=== PATIENT | female | born 1975 | race Caucasian/White ===

== ENCOUNTER → 2017-01-17 | Outpatient (REF) | payer MEDICARE, OTHER, MEDICAID ==
[~2017-01-17] MED LIST: ALEV220T26 PO; BUPR300T34 PO; CETI10TA PO; CLON0.5T PO; MONT10TA2 PO; MULT1CHW39 PO; TOPI50TA9 PO; TRAZ1TAB14 PO; TRAZ50TA11 PO; TRAZO50TA PO; VITMTA PO; WELLTAB38 PO
[2017-01-22 00:09] LABS: Lyme Disease IgG/IgM Antibodie <0.91 ISR (0.00-0.90); Lyme Disease IgM Ab Quantitati <0.80 index (0.00-0.79); SJOGREN'S ANTI SS-A <0.2 AI (0.0-0.9); SJOGREN'S ANTI SS-B <0.2 AI (0.0-0.9)
== END ==
LOC: M LAB REF 13:26
PROVIDERS: ATTEND Nurse Practitioner Family
DX: Z51.81 Encounter for therapeutic drug level monitoring (principal); F34.1 Dysthymic disorder; F43.10 Post-traumatic stress disorder, unspecified; Z79.1 Long term (current) use of non-steroidal anti-inflammatories (NSAID)

== ENCOUNTER 2017-02-07 18:57 | Inpatient (IN) | payer MEDICARE, OTHER, MEDICAID ==
[~2017-02-07] VITALS: Ht 175.3 cm; Wt 96.9 kg
[2017-02-07] MEDS ORDERED: CETI10TA PO (19:24)
[2017-02-07] MEDS ORDERED: MONT10TA2 PO (19:24)
[2017-02-07] MEDS ORDERED: TRAZ50TA11 PO (19:24)
[2017-02-07] MEDS ORDERED: TOPI50TA9 PO (19:24)
[2017-02-07] MEDS ORDERED: CLON0.5T PO (19:24)
[2017-02-07] MEDS ORDERED: BUPR300T34 PO (19:24)
[2017-02-07] MEDS ORDERED: MULT1CHW39 PO (19:24)
[2017-02-07 19:49] LABS: MEAN CORPUSCULAR HEMOGLOBIN 30.2 pg (27.0-33.0); MEAN CORPUSCULAR HGB CONC 33.7 g/dl (32.0-36.5); MEAN CORPUSCULAR VOLUME 89.6 fl (80.0-96.0); WHITE BLOOD COUNT 7.3 K/mm3 (4.0-10.0)
[2017-02-07] MEDS ORDERED: TETANUS/DIPHTHERIA TOX ADSORB ADULT 0.5ML SYR/VIAL (90714) IM ONE (20:00)
[2017-02-07] MEDS ORDERED: DERMABOND TOPICAL SKIN ADHESIVE TOP ONE (20:00)
[2017-02-07 20:07] LABS: METHADONE URINE NEGATIVE (NEGATIVE)
[2017-02-07 20:14] LABS: ALBUMIN 4.3 GM/DL (3.2-5.2); ALBUMIN/GLOBULIN RATIO 1.34 (1.00-1.93); ALKALINE PHOSPHATASE 62 U/L (45-117); ALT/SGPT 24 U/L (12-78); ANION GAP 10 MEQ/L (8-16); AST/SGOT 13 U/L (15-37); BILIRUBIN,DIRECT < 0.1 MG/DL (0.0-0.2); BILIRUBIN,TOTAL 0.3 MG/DL (0.2-1.0); BLOOD UREA NITROGEN 15 MG/DL (7-18); CALCIUM LEVEL 9.1 MG/DL (8.5-10.1); CARBON DIOXIDE LEVEL 20 MEQ/L (21-32); CHLORIDE LEVEL 112 MEQ/L (98-107); CREATININE FOR GFR 0.91 MG/DL (0.55-1.02); GLOMERULAR FILTRATION RATE > 60.0 (>58); GLUCOSE, FASTING 78 MG/DL (70-105); POTASSIUM SERUM 3.8 MEQ/L (3.5-5.1); SODIUM LEVEL 142 MEQ/L (136-145); TOTAL PROTEIN 7.5 GM/DL (6.4-8.2)
[2017-02-07] MEDS ORDERED: VITMTA PO (20:51)
[2017-02-07] MEDS ORDERED: TRAZ1TAB14 PO (20:51)
[2017-02-07] MEDS ORDERED: WELLTAB38 PO (20:51)
[2017-02-07] MEDS ORDERED: ALEV220T26 PO (20:59)
[2017-02-07 23:17] VITALS: BP 109/73
[2017-02-08] MEDS ORDERED: MOM 30ML SUSPENSION UDC PO PRN (00:15)
[2017-02-08] MEDS ORDERED: clonazePAM 0.5 MG TAB PO SCH (00:15)
[2017-02-08] MEDS ORDERED: MAALOX 30 ML SUSP *UDC PO PRN (00:15)
[2017-02-08] MEDS: clonazePAM 0.5 MG TAB PO PRN ×2 (00:59→21:25)
[2017-02-08] MEDS: traZODone 50 MG TAB PO PRN ×2 (00:59→21:25)
[2017-02-08] MEDS ORDERED: TOPIRAMATE (TopAMAX) 25 MG TAB PO ONE (01:00)
[2017-02-08] MEDS ORDERED: NAPROXEN 250 MG TAB PO ONE (01:00)
[2017-02-08 06:52] VITALS: BP 93/50
[2017-02-08] MEDS ORDERED: TOPIRAMATE (TopAMAX) 25 MG TAB PO SCH (09:00)
[2017-02-08] MEDS ORDERED: buPROPion 75 MG TAB PO SCH (09:00)
[2017-02-08] MEDS ORDERED: buPROPion **XL** TABLET 150MG (WELLBUTRIN XL) PO SCH (09:00)
[2017-02-08] MEDS ORDERED: buPROPion 100 MG TAB PO SCH (09:00)
[2017-02-08] MEDS: buPROPion **XL** TABLET 150MG (WELLBUTRIN XL) PO SCH (09:18)
[2017-02-08] MEDS: MONTELUKAST 10 MG TAB PO SCH (09:18)
[2017-02-08] MEDS: MULTIVITAMINS/MINERALS THERAP 1 TAB PO SCH (09:18)
[2017-02-08] MEDS: TOPIRAMATE (TopAMAX) 25 MG TAB PO SCH ×2 (09:18→21:24)
[2017-02-08] MEDS: CETIRIZINE (ZyrTEC) 10 MG TAB PO SCH (09:18)
[2017-02-08 18:00] VITALS: BP 102/60
[2017-02-08] MEDS ORDERED: NAPROXEN 250 MG TAB PO SCH ×2 (21:00)
[2017-02-09 06:38] VITALS: BP 100/56
[2017-02-09] MEDS: buPROPion **XL** TABLET 150MG (WELLBUTRIN XL) PO SCH (08:15)
[2017-02-09] MEDS: TOPIRAMATE (TopAMAX) 25 MG TAB PO SCH ×2 (08:15→20:38)
[2017-02-09] MEDS: CETIRIZINE (ZyrTEC) 10 MG TAB PO SCH (08:15)
[2017-02-09] MEDS: MONTELUKAST 10 MG TAB PO SCH (08:15)
[2017-02-09] MEDS: MULTIVITAMINS/MINERALS THERAP 1 TAB PO SCH (08:15)
[2017-02-09] MEDS: NAPROXEN 250 MG TAB PO SCH ×2 (13:40→20:38)
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
[2017-02-09 18:31] VITALS: BP 123/71
[2017-02-09] MEDS: traZODone 50 MG TAB PO PRN (20:39)
--- NOTE | 2017-02-10 06:38 | IPN ---
DATE: 02/09/2017 The patient today states "I am doing better today". She says she slept good. Her mood is 3 out of 10 with the closer to 10 as the most depressed. She is not suicidal. MENTAL STATUS EXAMINATION: She is alert and oriented times three, eye contact is fair to good. Psychomotor activity is normal. There is no formal thought disorder noted. Mood is "better". Affect full range and appropriate. She is not psychotic, suicidal or homicidal. Concentration is fair. Memory intact. Insight and judgment fair. DIAGNOSIS: Major depressive disorder, recurrent, severe, without psychotic symptoms. Posttraumatic stress disorder. TREATMENT PLAN: At this point, we will continue to monitor the patient for continued stabilization of her mood and resolution of any suicidal ideation.
[2017-02-10 07:08] VITALS: BP 104/57
--- NOTE | 2017-02-10 09:02 | HPE ---
DATE OF ADMISSION: 02/07/2017 Please refer to psychiatric history and evaluation for further details on this admission. This examination and history is intended for medical issues which may need treatment, followup or consult on this 41-year-old female. PRIMARY CARE PROVIDER: Dr. Neumann. ALLERGIES: LAMOTRIGINE, PENICILLIN, SULFA, LATEX. 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 It has long since healed without complication. Fibromyalgia. Posttraumatic stress disorder. Environmental allergies. She is currently being worked up for an autoimmune disorder. PAST SURGICAL HISTORY: She had elective convulsive therapy. Repair of deviated septum and adenoidectomy at age 1. Uterine ablation. Tubal ligation. FAMILY HISTORY: Mother and father both have hypertension. SOCIAL HISTORY: She is . She recently moved back from [place]. She is living with her mother. She has three grown children ages 18, 20 and 25. ETOH: She rarely drinks. She does not smoke cigarettes. She does not use recreational drugs. CURRENT MEDICATIONS: - bupropion 300 mg by mouth daily - bupropion XL 150 mg by mouth daily - Cetirizine 10 mg by mouth daily at bedtime - clonazepam 0.5 mg by mouth daily as needed anxiety - Singulair 10 mg by mouth daily - Multivite one by mouth daily - Topamax 50 mg by mouth twice daily - trazodone 75 mg by mouth daily at bedtime - Aleve 220 mg by mouth daily at bedtime Ten systems review was done. No complaints of headache. No blurry or double vision. No fever. No chills. No tinnitus. No hoarseness. No difficulty swallowing. No lightheadedness. No Vertigo. Breasts: No masses. CARDIOVASCULAR: No complaints of chest pressure, palpitations or edema. RESPIRATORY: No chronic cough, no sputum production. No hemoptysis. No orthopnea. No wheeze. GI: No nausea or vomiting currently or diarrhea. No current complaints of abdominal pain. No hematochezia, no melena. No change in appetite or bowel habits. : No hematuria, dysuria or frequency. MUSCULOSKELETAL: No joint redness or swelling. ENDOCRINE: No polyuria, polydipsia or polyphagia. HEMATOLOGICAL: No history of anemia. NEUROLOGICAL: She has a history of fibromyalgia. No history of seizures. No paresthesias or paralysis. PSYCHOLOGICAL: See psychiatric assessment. OBJECTIVE: 41-year-old cooperative female in no acute distress. Height 69 inches, weight 95.8 kg. BMI 31.2. Blood pressure 100/56, pulse 51, respirations 18, temperature 97.9. The patient is alert and oriented times three. Pupils equal and reactive to light. Extraocular movements intact. Cornea and sclera clear. Conjunctiva normal. No facial asymmetry. Pharynx, tongue and gums pink and moist. Tongue is midline. Neck is supple, without lymphadenopathy. No thyromegaly. No goiter. Carotids 2+ without bruit. Chest clear to auscultation, without wheeze or retraction. Heart is regular. Abdomen benign. Bowel sounds positive. Genitourinary ()/Rectal: Not done. Extremities show equal strength, full range of motion. No cyanosis, clubbing or edema. Peripheral pulses equal and palpable bilaterally. Skin is warm and dry. Laceration noted inside left forearm approximately 2 inches long, partially glued. A small amount of glue has come off the proximal laceration, approximately 3 cm. No redness or drainage. IMPRESSION/PLAN: Psychiatric plan per psychiatry. Steri-Strip to laceration. Apply dry Telfa. Monitor for infection. Environmental allergies. Clinically stable. Continue Zyrtec 10 mg by mouth daily, Singulair 10 mg by mouth daily. Fibromyalgia, continue followup with primary care provider. No other acute medical issues.
[2017-02-10] MEDS: MULTIVITAMINS/MINERALS THERAP 1 TAB PO SCH (09:05)
[2017-02-10] MEDS: buPROPion **XL** TABLET 150MG (WELLBUTRIN XL) PO SCH (09:05)
[2017-02-10] MEDS: TOPIRAMATE (TopAMAX) 25 MG TAB PO SCH ×2 (09:05→20:28)
[2017-02-10] MEDS: MONTELUKAST 10 MG TAB PO SCH (09:06)
[2017-02-10] MEDS: CETIRIZINE (ZyrTEC) 10 MG TAB PO SCH (09:06)
[2017-02-10] MEDS: NAPROXEN 250 MG TAB PO SCH ×2 (09:06→20:28)
[2017-02-10 18:00] VITALS: BP 125/72
[2017-02-10] MEDS: traZODone 50 MG TAB PO PRN (20:28)
[2017-02-10] MEDS: clonazePAM 0.5 MG TAB PO PRN (22:31)
[2017-02-11 06:54] VITALS: BP 108/64
--- NOTE | 2017-02-11 08:18 | MHIPN ---
DATE: 02/10/2017 SUBJECTIVE: Patient reports she is doing better, she states she is depressed because her son, the youngest, has a severe drug problem, has been arrested and there seems to be no end to this problem that is effecting all her family. She requests to be discharged, says that the problem is there is it will not resolve by her taking medications. MENTAL STATUS EXAMINATION: Patient is alert and oriented times three. She has good eye contact, dressed in personal clothes. She has no psychomotor agitation or retardation, she is not delusional, she is not responding to internal stimuli, she denies auditory or visual hallucinations, denies suicidal or homicidal ideation. Her mood is sad/depressed and her affect of congruent to mood. Her memory is intact, her insight and judgment are fair. DIAGNOSES: 1. Major depressive disorder, recurrent, severe without psychotic symptoms. 2. Posttraumatic stress disorder. TREATMENT PLAN: Will continue patient on the same medications, she was ordered the possibility of Abilify on a small dose just as a booster to her recently adjusted bupropion 450 mg daily but she refused, saying that she already had tried Abilify in the past and it did not work. At this time, will monitor her and will encourage her to attend groups, provide support.
[2017-02-11] MEDS: MULTIVITAMINS/MINERALS THERAP 1 TAB PO SCH (08:34)
[2017-02-11] MEDS: TOPIRAMATE (TopAMAX) 25 MG TAB PO SCH ×2 (08:34→20:27)
[2017-02-11] MEDS: buPROPion **XL** TABLET 150MG (WELLBUTRIN XL) PO SCH (08:35)
[2017-02-11] MEDS: NAPROXEN 250 MG TAB PO SCH ×2 (08:35→20:28)
[2017-02-11] MEDS: MONTELUKAST 10 MG TAB PO SCH (08:35)
[2017-02-11] MEDS: CETIRIZINE (ZyrTEC) 10 MG TAB PO SCH (08:35)
[2017-02-11] MEDS ORDERED: ACETAMINOPHEN TAB 650MG DOSE (2X325MG) PO PRN (10:45)
[2017-02-11] MEDS ORDERED: clonazePAM 0.5 MG TAB PO PRN (12:00)
[2017-02-11 18:00] VITALS: BP 121/71
[2017-02-11] MEDS ORDERED: traZODone 50 MG TAB PO PRN (21:00)
[2017-02-12 06:51] VITALS: BP 119/61
[2017-02-12] MEDS: buPROPion **XL** TABLET 150MG (WELLBUTRIN XL) PO SCH (08:11)
[2017-02-12] MEDS: CETIRIZINE (ZyrTEC) 10 MG TAB PO SCH (08:11)
[2017-02-12] MEDS: NAPROXEN 250 MG TAB PO SCH (08:11)
[2017-02-12] MEDS: MULTIVITAMINS/MINERALS THERAP 1 TAB PO SCH (08:11)
[2017-02-12] MEDS: MONTELUKAST 10 MG TAB PO SCH (08:11)
[2017-02-12] MEDS: TOPIRAMATE (TopAMAX) 25 MG TAB PO SCH (08:12)
[2017-02-12] MEDS ORDERED: TRAZO50TA PO (09:42)
--- NOTE | 2017-02-12 17:09 | MHDSPDOC ---
[facility] Discharge Summary Discharge Summary DATE OF ADMISSION: Feb 07, 2017 at 21:00 DATE OF DISCHARGE: Feb 12, 2017 at 11:45 DISCHARGE DIAGNOSES: 1. Major depressive disorder, recurrent, moderate without psychotic symptoms. 2. PTSD. REASON FOR ADMISSION: This is one of multiple psychiatric hospitalizations for this 41-year-old white woman admitted due to severe and what appears to be chronic depression and after she impulsively cut herself on her left wrist. She describes having increased stress. She moved here recently from [place] and has been living with her mother. This is because her current decided to abuse drugs and she decided to leave him. The patient says that she is worried about her mother's health and her 17-year-old son has been abusing drugs also. She says that she has had chronic depression and feeling hopeless and helpless, isolative. She has not been sleeping well, although recently since she was prescribed trazodone she is sleeping better. She feels hopeless, helpless and has feelings of worthlessness. She experiences anhedonia. She stated that on the day of admission she had made something for her granddaughter, which was made of glass and this broke and she impulsively just took it and cut her wrist. She says that she has never done anything like that before. Of note, the patient was prescribed, at [facility], Wellbutrin XL 450 mg daily and that was recently increased. She was also started on Topamax 50 mg twice a day in the clinic and that was also recent. She takes Klonopin 0.5 mg once daily, but she says that she really needs it and she is sleeping better since she has been on trazodone 150 mg at night as needed for insomnia. CONSULTANTS INVOLVED: None TREATMENT AND PROGRESS ON THE UNIT : Patient was seen by this va underwriter on Friday and she expressed that she never intended to kill herself, it was an impulsive act to cut herself, out of frustration and anger. She says she feels desperate because her son is using drugs and has been arrested. She cried easily , was very tearful. Said she has been depressed for many years and has many attempted suicide before. She also expressed that she did this because she doesn 't know what else to do with her son, she feels very anxious about that situation. She says she knows she can take all the medications in the world but if that continues, her son's problem, she will continue to feel depressed. She was able to talk about her previous history of trauma with her ex , said she didn't want any change in her medications because they just had been changed at the Outpatient Clinic. Adamantly denied SI, denied HI and denied thought delusions and hallucinations. She said she wanted to be discharged because she had planned going on vacations with her mother, said she felt better , her family was very supportive of her. HOSPITAL COURSE: As above. DISCHARGE ASSESSMENT: Patient was alert, oriented x 3 , was not in danger to self or others. MENTAL STATUS EXAMINATION ON DISCHARGE: Patient is a -year old female, who is alert, oriented 3, cooperative with interview, dressed in personal clothes. Speech is fluid and spontaneous. Language skills are fair. Thought processes including: Intact. Thought content: Coherent. Abstract reasoning, and computation: Good. Description of associations: Good. Description of abnormal or psychotic thoughts: There is no psychotic thoughts, she is not responding to internal stimuli, she is not suicidal or homicidal. Judgment: Improved. Insight: Improved. Orientation to oriented 3. Recent and remote memory: Intact. Attention span and concentration: Fair. Language: Normal. Fund of knowledge: Fair. Mood: Euthymic. Affect: Congruent to mood, full range, appropriate. MEDICATIONS ON DISCHARGE: -Wellbutrin 450 mg by mouth daily for depression. - Ativan 0.5 mg E on daily when necessary for anxiety - Topamax 50 mg by mouth twice a day for mood stabilization -Trazodone 150 mg by mouth daily at bedtime for insomnia. PLAN/FOLLOWUP ARRANGEMENTS: Patient will follow up at the outpatient clinic, [facility] The amount of time spent in the coordination of care for this patient was approximately 60 minutes. Vital Signs/I&Os Vital Signs Date Time Temp Pulse Resp B/P (MAP) Pulse Ox O2 Delivery O2 Flow Rate FiO2 02/12/17 06:51 98.9 67 18 119/61 (80) 02/10/17 07:08 Room Air 02/07/17 22:50 100 Medications Scheduled Bupropion HCl (Bupropion HCl Xl) 300 Mg Tab, 300 MG PO DAILY, (Reported) 450mg total Bupropion HCl (Wellbutrin Xl) 150 Mg Tab, 150 MG PO DAILY, (Reported) 450mg total Cetirizine HCl (Cetirizine HCl) 10 Mg Tab, 10 MG PO DAILY, (Reported) Montelukast Sodium (Montelukast Sodium) 10 Mg Tab, 10 MG PO DAILY, (Reported) Multivitamins *[facility] STOCKED* (Thera M Plus *[facility] STOCKED*) 1 Tab Tab, 1 TAB PO DAILY, (Reported) Naproxen Sodium (Aleve) 220 Mg Tab, 220 MG PO QPM, (Reported) Topiramate (Topiramate) 50 Mg Tab, 50 MG PO BID, (Reported) Scheduled PRN Clonazepam (Clonazepam) 0.5 Mg Tab, 0.5 MG PO DAILY PRN for ANXIETY/AGITATION, ( Reported) Trazodone HCl (Trazodone HCl) 50 Mg Tab, 150 MG PO QHSP PRN for INSOMNIA, #21 Allergies Coded Allergies: Lamotrigine (Verified Allergy, Unknown, 02/07/17) Latex (Verified Allergy, Unknown, 02/07/17) Penicillins (Verified Allergy, Unknown, 02/07/17) Sulfa Antibiotics (Verified Allergy, Unknown, 02/07/17) NIGEL LOVE MD Feb 12, 2017 17:09
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
== END 2017-02-12 11:45 | disposition home or self-care (01) | DRG 885 ==
LOC: M ED 18:57 → M ED INP 21:00 → M PSY 23:11
PROVIDERS: ADMIT Psychiatry & Neurology Psychiatry; ATTEND Psychiatry & Neurology Psychiatry
DX: F33.1 Major depressive disorder, recurrent, moderate (principal); F43.10 Post-traumatic stress disorder, unspecified; Z79.899 Other long term (current) drug therapy; Z88.0 Allergy status to penicillin; Z88.2 Allergy status to sulfonamides; Z91.040 Latex allergy status; M79.7 Fibromyalgia

== ENCOUNTER → 2017-02-20 | Outpatient (REF) | payer MEDICARE, OTHER, MEDICAID | LOC: M LAB REF 16:50 | PROVIDERS: ATTEND Physician Assistant Medical | DX: N39.0 Urinary tract infection, site not specified (principal) ==

== ENCOUNTER → 2017-03-08 | Outpatient (REF) | payer MEDICARE, OTHER, MEDICAID | LOC: M LAB REF 22:10 | PROVIDERS: ATTEND Physician Assistant Medical | DX: N39.0 Urinary tract infection, site not specified (principal) ==

== ENCOUNTER → 2017-03-11 | Outpatient (REF) | payer MEDICARE, OTHER, MEDICAID ==
[2017-03-11 19:35] LABS: COMPLEMENT C4 31.3 MG/DL (10-40)
== END ==
LOC: M LAB REF 14:12
PROVIDERS: ATTEND Internal Medicine
DX: R76.9 Abnormal immunological finding in serum, unspecified (principal); M25.50 Pain in unspecified joint

== ENCOUNTER → 2017-03-20 | Outpatient (REF) | payer MEDICARE, OTHER, MEDICAID | LOC: M LAB REF 17:17 | PROVIDERS: ATTEND Internal Medicine | DX: R31.9 Hematuria, unspecified (principal) ==

== ENCOUNTER → 2017-07-22 | Outpatient (CLI) | payer MEDICARE, OTHER, MEDICAID ==
[2017-07-25 14:13] LABS: STREP PNEUMO TYPE 1 0.2 ug/mL (>1.3); STREP PNEUMO TYPE 12F 4.3 ug/mL (>1.3); STREP PNEUMO TYPE 14 31.9 ug/mL (>1.3); STREP PNEUMO TYPE 18C 1.4 ug/mL (>1.3); STREP PNEUMO TYPE 19A >30.4 ug/mL (>1.3); STREP PNEUMO TYPE 19F 1.8 ug/mL (>1.3); STREP PNEUMO TYPE 23F 3.2 ug/mL (>1.3); STREP PNEUMO TYPE 3 1.4 ug/mL (>1.3); STREP PNEUMO TYPE 4 0.4 ug/mL (>1.3); STREP PNEUMO TYPE 6B 6.2 ug/mL (>1.3); STREP PNEUMO TYPE 7F >30.2 ug/mL (>1.3); STREP PNEUMO TYPE 8 0.3 ug/mL (>1.3); STREP PNEUMO TYPE 9N 3.4 ug/mL (>1.3); STREP PNEUMO TYPE 9V 3.1 ug/mL (>1.3)
== END ==
LOC: M SMT 10:21
DX: J32.9 Chronic sinusitis, unspecified (principal)
CPT/HCPCS: 86609

== ENCOUNTER → 2017-07-28 | Outpatient (CLI) | payer MEDICARE, OTHER, MEDICAID | LOC: M RAD 15:38 | DX: J32.9 Chronic sinusitis, unspecified (principal) | CPT/HCPCS: 70486 ==

== ENCOUNTER → 2017-12-05 | Outpatient (REF) | payer MEDICARE, OTHER, MEDICAID ==
[2017-12-05 18:29] LABS: APPEARANCE, URINE CLEAR (CLEAR); BACTERIA, URINE AUTO 1+ (NEGATIVE); BILIRUBIN, URINE AUTO NEGATIVE (NEGATIVE); BLOOD, URINE BLOOD NEGATIVE (NEGATIVE); COLOR, URINE COLORLESS (YELLOW); GLUCOSE, URINE (UA) AUTO NEGATIVE (NEGATIVE); KETONE, URINE AUTO NEGATIVE (NEGATIVE); LEUKOCYTE ESTERASE, URINE AUTO TRACE (NEGATIVE); NITRITE, URINE AUTO NEGATIVE (NEGATIVE); PROTEIN, URINE AUTO NEGATIVE (NEGATIVE); RBC, URINE AUTO 1 /HPF (0-3); SPECIFIC GRAVITY URINE AUTO 1.002 (1.002-1.035); SQUAMOUS EPITHELIAL CELL UR AU 1 /HPF (0-6); UROBILINOGEN, URINE AUTO 0.2 mg/dL (0.0-2.0); WBC, URINE AUTO 4 /HPF (0-3)
== END ==
LOC: M LAB REF 16:39
DX: N39.0 Urinary tract infection, site not specified (principal); F33.1 Major depressive disorder, recurrent, moderate; F34.1 Dysthymic disorder; F43.10 Post-traumatic stress disorder, unspecified
CPT/HCPCS: 81001

== ENCOUNTER → 2018-03-23 | Outpatient (CLI) | payer MEDICARE, OTHER, MEDICAID | LOC: M RAD 13:28 | DX: J32.4 Chronic pansinusitis (principal); G43.019 Migraine without aura, intractable, without status migrainosus | CPT/HCPCS: 70486 ==

== ENCOUNTER → 2018-04-14 | Outpatient (REF) | payer MEDICARE, OTHER ==
[2018-04-14 14:03] LABS: APPEARANCE, URINE CLOUDY (CLEAR); BACTERIA, URINE AUTO 1+ (NEGATIVE); BILIRUBIN, URINE AUTO NEGATIVE (NEGATIVE); BLOOD, URINE BLOOD 3+ (NEGATIVE); COLOR, URINE YELLOW (YELLOW); GLUCOSE, URINE (UA) AUTO NEGATIVE (NEGATIVE); KETONE, URINE AUTO NEGATIVE (NEGATIVE); LEUKOCYTE ESTERASE, URINE AUTO 3+ (NEGATIVE); NITRITE, URINE AUTO NEGATIVE (NEGATIVE); PROTEIN, URINE AUTO 1+ mg/dL (NEGATIVE); RBC, URINE AUTO TNTC /HPF (0-3); SPECIFIC GRAVITY URINE AUTO 1.012 (1.002-1.035); SQUAMOUS EPITHELIAL CELL UR AU 0 /HPF (0-6); UROBILINOGEN, URINE AUTO 0.2 mg/dL (0.0-2.0); WBC, URINE AUTO TNTC /HPF (0-3)
== END ==
LOC: M LAB REF 13:29
DX: N39.0 Urinary tract infection, site not specified (principal)
CPT/HCPCS: 81001

== ENCOUNTER → 2018-05-15 | Outpatient (REF) | payer MEDICARE, OTHER, MEDICAID ==
[2018-05-15 14:03] LABS: APPEARANCE, URINE HAZY (CLEAR); BACTERIA, URINE AUTO 1+ (NEGATIVE); BILIRUBIN, URINE AUTO NEGATIVE (NEGATIVE); BLOOD, URINE BLOOD 1+ (NEGATIVE); COLOR, URINE YELLOW (YELLOW); GLUCOSE, URINE (UA) AUTO NEGATIVE (NEGATIVE); KETONE, URINE AUTO NEGATIVE (NEGATIVE); LEUKOCYTE ESTERASE, URINE AUTO 2+ (NEGATIVE); NITRITE, URINE AUTO NEGATIVE (NEGATIVE); PROTEIN, URINE AUTO NEGATIVE (NEGATIVE); RBC, URINE AUTO 10 /HPF (0-3); SPECIFIC GRAVITY URINE AUTO 1.012 (1.002-1.035); SQUAMOUS EPITHELIAL CELL UR AU 1 /HPF (0-6); UROBILINOGEN, URINE AUTO 0.2 mg/dL (0.0-2.0); WBC, URINE AUTO 83 /HPF (0-3)
== END ==
LOC: M LAB REF 13:24
DX: N39.0 Urinary tract infection, site not specified (principal)
CPT/HCPCS: 81001

== ENCOUNTER → 2018-06-18 | Outpatient (REF) | payer MEDICARE, OTHER, MEDICAID ==
[~2018-06-18] MED LIST changes: -CLON0.5T PO; +CLON0.5T8 PO; +TRAZ-160 PO; -TRAZ50TA11 PO
[2018-06-18 17:51] LABS: APPEARANCE, URINE CLEAR (CLEAR); BACTERIA, URINE AUTO NEGATIVE (NEGATIVE); BILIRUBIN, URINE AUTO NEGATIVE (NEGATIVE); BLOOD, URINE BLOOD NEGATIVE (NEGATIVE); COLOR, URINE YELLOW (YELLOW); GLUCOSE, URINE (UA) AUTO NEGATIVE (NEGATIVE); KETONE, URINE AUTO NEGATIVE (NEGATIVE); LEUKOCYTE ESTERASE, URINE AUTO NEGATIVE (NEGATIVE); NITRITE, URINE AUTO NEGATIVE (NEGATIVE); PROTEIN, URINE AUTO NEGATIVE (NEGATIVE); RBC, URINE AUTO 1 /HPF (0-3); SPECIFIC GRAVITY URINE AUTO 1.012 (1.002-1.035); SQUAMOUS EPITHELIAL CELL UR AU 0 /HPF (0-6); UROBILINOGEN, URINE AUTO 0.2 mg/dL (0.0-2.0); WBC, URINE AUTO 1 /HPF (0-3)
== END ==
LOC: M SMT 17:11
PROVIDERS: ATTEND Nurse Practitioner Family
DX: R31.29 Other microscopic hematuria (principal)
CPT/HCPCS: 51798; 81001; 87088; 87186; 88108; G0463

== ENCOUNTER → 2018-06-25 | Outpatient (CLI) | payer MEDICARE, OTHER, MEDICAID ==
[~2018-06-25] MED LIST changes: +ISOVUE-370 76% 100ML VIAL (Q9967) As Ordered ONE
--- NOTE | 2018-06-25 17:56 | REP ---
CT UROGRAM ABDOMEN AND PELVIS: CT abdomen and pelvis performed prior to and following the intravenous administration of 100 mL of Isovue-370 with sagittal, coronal and 3D reconstruction images performed. Visualized lungs bases are clear. Precontrast images show focal cortical scarring in the upper pole of the right kidney laterally with underlying coarse cortical calcifications measuring 4 mm and 6 mm in diameter. Otherwise no renal calculi are seen and there is no hydroureteronephrosis. No ureteral or bladder calculus is seen. No definite gallstones are seen in the gallbladder. Postcontrast images show the liver, spleen, adrenals, pancreas and kidneys to be essentially unremarkable. There is no abdominal aortic aneurysm. There is no adenopathy. There is no free air or free fluid. No bowel wall thickening is seen. I see no pelvic mass. Sigmoid diverticulosis is incidentally noted. The urinary bladder demonstrates no definite abnormality. IMPRESSION: Focal scarring and cortical calcification in the upper pole of the right kidney. Otherwise, no evidence of renal, ureteral or bladder calculus and no evidence of renal, ureteral or bladder mass. Sigmoid diverticulosis. Electronically Signed by Celso Gabriel MD 07/02/2018 11:00 P
== END ==
LOC: M RAD 15:51
PROVIDERS: ATTEND Nurse Practitioner Family
DX: R31.29 Other microscopic hematuria (principal); K57.30 Diverticulosis of large intestine without perforation or abscess without bleeding
CPT/HCPCS: 74178; Q9967

== ENCOUNTER → 2018-09-09 | Outpatient (REF) | payer MEDICARE, OTHER, MEDICAID ==
[~2018-09-09] MED LIST changes: -ISOVUE-370 76% 100ML VIAL (Q9967) As Ordered ONE
[2018-09-09 13:21] LABS: APPEARANCE, URINE CLEAR (CLEAR); BACTERIA, URINE AUTO NEGATIVE (NEGATIVE); BILIRUBIN, URINE AUTO NEGATIVE (NEGATIVE); BLOOD, URINE BLOOD NEGATIVE (NEGATIVE); COLOR, URINE YELLOW (YELLOW); GLUCOSE, URINE (UA) AUTO NEGATIVE (NEGATIVE); KETONE, URINE AUTO NEGATIVE (NEGATIVE); LEUKOCYTE ESTERASE, URINE AUTO NEGATIVE (NEGATIVE); NITRITE, URINE AUTO NEGATIVE (NEGATIVE); PROTEIN, URINE AUTO NEGATIVE (NEGATIVE); RBC, URINE AUTO 1 /HPF (0-3); SPECIFIC GRAVITY URINE AUTO 1.011 (1.002-1.035); SQUAMOUS EPITHELIAL CELL UR AU 0 /HPF (0-6); UROBILINOGEN, URINE AUTO 0.2 mg/dL (0.0-2.0); WBC, URINE AUTO 0 /HPF (0-3)
== END ==
LOC: M SMT 13:00
PROVIDERS: ATTEND Urology
DX: N39.0 Urinary tract infection, site not specified (principal)

== ENCOUNTER → 2018-10-08 | Outpatient (REF) | payer MEDICARE, OTHER, MEDICAID ==
[~2018-10-08] MED LIST changes: -MULT1CHW39 PO; +MULT200T7 PO
[2018-10-08 19:49] LABS: APPEARANCE, URINE CLEAR (CLEAR); BACTERIA, URINE AUTO NEGATIVE (NEGATIVE); BILIRUBIN, URINE AUTO NEGATIVE (NEGATIVE); BLOOD, URINE BLOOD 2+ (NEGATIVE); COLOR, URINE YELLOW (YELLOW); GLUCOSE, URINE (UA) AUTO NEGATIVE (NEGATIVE); KETONE, URINE AUTO NEGATIVE (NEGATIVE); LEUKOCYTE ESTERASE, URINE AUTO NEGATIVE (NEGATIVE); NITRITE, URINE AUTO NEGATIVE (NEGATIVE); PROTEIN, URINE AUTO NEGATIVE (NEGATIVE); RBC, URINE AUTO 2 /HPF (0-3); SPECIFIC GRAVITY URINE AUTO 1.005 (1.002-1.035); SQUAMOUS EPITHELIAL CELL UR AU 0 /HPF (0-6); UROBILINOGEN, URINE AUTO 0.2 mg/dL (0.0-2.0); WBC, URINE AUTO 0 /HPF (0-3)
== END ==
LOC: M SMT 17:14
PROVIDERS: ATTEND Nurse Practitioner Family
DX: N39.0 Urinary tract infection, site not specified (principal)
CPT/HCPCS: 81001; 87086; G0463

== ENCOUNTER → 2018-10-14 | Outpatient (CLI) | payer MEDICARE, OTHER, MEDICAID ==
--- NOTE | 2018-10-14 15:06 | REP ---
REASON FOR EXAM: Flank pain. COMPARISON: Ultrasound 03/14/[address] of the abdomen/pelvis 06/25/2018 showing a cortical calcification in the upper pole of the right kidney. The exam was otherwise unremarkable. The right kidney measures 10.9 x 4.7 x 4.2 cm, and the left kidney measures 10.7 x 4.9 x 5.1 cm. The renal cortical echoes are normal bilaterally with preservation of cortical medullary differentiation. There are no cystic or solid masses. Seen in the upper pole of the right kidney, there is an echogenic focus and, again, likely representing either focal cortical scarring or nonobstructing cortical calcification. This area does not cause significant acoustic shadowing. IMPRESSION: No significant change from prior exams with finding as described above. Electronically Signed by Calrito Miranda DO 10/14/2018 05:02 P
== END ==
LOC: M RAD 12:20
PROVIDERS: ATTEND Nurse Practitioner Family
DX: M54.9 Dorsalgia, unspecified (principal); F33.1 Major depressive disorder, recurrent, moderate; F43.10 Post-traumatic stress disorder, unspecified; F34.1 Dysthymic disorder; F90.0 Attention-deficit hyperactivity disorder, predominantly inattentive type; F41.1 Generalized anxiety disorder; G47.00 Insomnia, unspecified

== ENCOUNTER → 2018-11-06 | Outpatient (CLI) | payer MEDICARE, OTHER, MEDICAID ==
--- NOTE | 2018-11-06 15:46 | REP ---
BILATERAL MAMMOGRAM WITH 3D TOMOSYNTHESIS, DIAGNOSTIC MAMMOGRAM RIGHT BREAST AND RIGHT BREAST ULTRASOUND: HISTORY: Palpable lump with pain and swelling right breast upper outer quadrant. Family history breast cancer in maternal grandmother over age 50. [facility] of [facility] cancer 13.3%. The palpable area is marked on the skin on the right breast. MLO and CC views performed bilaterally with 3D tomosynthesis. Comparison made with prior study of 04/25/2008. There is moderate fibroglandular tissue scattered bilaterally. No mass or architectural distortion is seen. No clustered microcalcifications are seen. Additional spot compression views of the palpable abnormality show no mammographic abnormality. Real-time sonographic evaluation of the upper outer quadrant of the right breast shows no cystic or solid nodule. IMPRESSION: ACR 1 negative mammogram. No mass or clustered microcalcifications. Diagnostic mammogram and ultrasound upper outer quadrant right breast demonstrates no mammographic or sonographic abnormality. A negative mammogram and ultrasound should not deter biopsy if there is a clinically suspicious palpable mass present. Clinical correlation and followup recommended. Recommend followup mammogram in one year. BIRADS 1: BI-RADS/ACR category 1 mammogram. Negative Mammogram. This mammogram was interpreted with the aid of an FDA-approved computer-aided detection system. The patient letter being requested is M2. Electronically Signed by Celso Gabriel MD 11/11/2018 11:43 A
== END ==
LOC: M RAD 11:27
PROVIDERS: ATTEND Nurse Practitioner Adult Health
DX: N63.10 Unspecified lump in the right breast, unspecified quadrant (principal); R92.8 Other abnormal and inconclusive findings on diagnostic imaging of breast
CPT/HCPCS: 76642; 77066; G0279

== ENCOUNTER → 2019-02-14 | Outpatient (REF) | payer MEDICARE, OTHER, MEDICAID ==
[~2019-02-14] MED LIST changes: -TRAZ-160 PO; +TRAZ-252 PO; +TRAZ1TAB10 PO; -TRAZO50TA PO
[2019-02-14 21:26] LABS: APPEARANCE, URINE HAZY (CLEAR); BACTERIA, URINE AUTO 1+ (NEGATIVE); BILIRUBIN, URINE AUTO NEGATIVE (NEGATIVE); BLOOD, URINE BLOOD 1+ (NEGATIVE); COLOR, URINE YELLOW (YELLOW); GLUCOSE, URINE (UA) AUTO NEGATIVE (NEGATIVE); KETONE, URINE AUTO TRACE mg/dL (NEGATIVE); LEUKOCYTE ESTERASE, URINE AUTO 2+ (NEGATIVE); MUCUS, URINE SMALL (NEGATIVE); NITRITE, URINE AUTO NEGATIVE (NEGATIVE); PROTEIN, URINE AUTO NEGATIVE (NEGATIVE); RBC, URINE AUTO 12 /HPF (0-3); SPECIFIC GRAVITY URINE AUTO 1.025 (1.002-1.035); SQUAMOUS EPITHELIAL CELL UR AU 1 /HPF (0-6); UROBILINOGEN, URINE AUTO 0.2 mg/dL (0.0-2.0); WBC, URINE AUTO 117 /HPF (0-3)
== END ==
LOC: M LAB REF 08:48
PROVIDERS: ATTEND Physician Assistant Medical
DX: N39.0 Urinary tract infection, site not specified (principal)

== ENCOUNTER → 2019-04-01 | Outpatient (REF) | payer MEDICARE, OTHER, MEDICAID | LOC: M LAB REF 09:11 | PROVIDERS: ATTEND Physician Assistant | DX: R30.0 Dysuria (principal) ==

== ENCOUNTER → 2019-06-22 | Outpatient (REF) | payer MEDICARE, OTHER, MEDICAID ==
[~2019-06-22] MED LIST changes: +CLON0.5T2 PO; -CLON0.5T8 PO
[2019-06-22 15:54] LABS: APPEARANCE, URINE HAZY (CLEAR); BACTERIA, URINE AUTO 1+ (NEGATIVE); BILIRUBIN, URINE AUTO NEGATIVE (NEGATIVE); BLOOD, URINE BLOOD 1+ (NEGATIVE); COLOR, URINE YELLOW (YELLOW); GLUCOSE, URINE (UA) AUTO NEGATIVE (NEGATIVE); KETONE, URINE AUTO TRACE mg/dL (NEGATIVE); LEUKOCYTE ESTERASE, URINE AUTO 2+ (NEGATIVE); NITRITE, URINE AUTO NEGATIVE (NEGATIVE); PROTEIN, URINE AUTO NEGATIVE (NEGATIVE); RBC, URINE AUTO 9 /HPF (0-3); SPECIFIC GRAVITY URINE AUTO 1.016 (1.002-1.035); SQUAMOUS EPITHELIAL CELL UR AU 1 /HPF (0-6); UROBILINOGEN, URINE AUTO 0.2 mg/dL (0.0-2.0); WBC, URINE AUTO 101 /HPF (0-3)
== END ==
LOC: M LAB REF 09:16
PROVIDERS: ATTEND Physician Assistant Medical
DX: N39.0 Urinary tract infection, site not specified (principal)

== ENCOUNTER → 2019-08-06 | Outpatient (REF) | payer MEDICARE, OTHER, MEDICAID ==
[~2019-08-06] MED LIST changes: -BUPR300T34 PO; +BUPR300T92 PO; -MONT10TA2 PO; +MONT10TA4 PO
[2019-08-06 19:50] LABS: APPEARANCE, URINE CLOUDY (CLEAR); BACTERIA, URINE AUTO 1+ (NEGATIVE); BILIRUBIN, URINE AUTO NEGATIVE (NEGATIVE); BLOOD, URINE BLOOD 3+ (NEGATIVE); CALCIUM OXALATE CRYSTALS LARGE; COLOR, URINE YELLOW (YELLOW); GLUCOSE, URINE (UA) AUTO NEGATIVE (NEGATIVE); KETONE, URINE AUTO TRACE mg/dL (NEGATIVE); LEUKOCYTE ESTERASE, URINE AUTO 2+ (NEGATIVE); NITRITE, URINE AUTO NEGATIVE (NEGATIVE); PROTEIN, URINE AUTO 1+ mg/dL (NEGATIVE); RBC, URINE AUTO 52 /HPF (0-3); SPECIFIC GRAVITY URINE AUTO 1.023 (1.002-1.035); SQUAMOUS EPITHELIAL CELL UR AU 23 /HPF (0-6); UROBILINOGEN, URINE AUTO 0.2 mg/dL (0.0-2.0); WBC, URINE AUTO 28 /HPF (0-3)
[2019-08-06 20:15] LABS: INFLUENZA A AMPLIFICATION NEGATIVE (NEGATIVE); INFLUENZA B AMPLIFICATION NEGATIVE (NEGATIVE)
== END ==
LOC: M LAB REF 16:10
PROVIDERS: ATTEND Physician Assistant
DX: N39.0 Urinary tract infection, site not specified (principal)

== ENCOUNTER → 2019-09-14 | Outpatient (REF) | payer MEDICARE, OTHER, MEDICAID | LOC: M LAB REF 17:36 | PROVIDERS: ATTEND Internal Medicine | DX: N83.292 Other ovarian cyst, left side (principal); D39.12 Neoplasm of uncertain behavior of left ovary; Z12.72 Encounter for screening for malignant neoplasm of vagina ==

== ENCOUNTER → 2019-09-24 | Outpatient (REF) | payer MEDICARE, OTHER, MEDICAID ==
[2019-09-24 17:49] LABS: INFLUENZA A AMPLIFICATION NEGATIVE (NEGATIVE); INFLUENZA B AMPLIFICATION NEGATIVE (NEGATIVE)
== END ==
LOC: M LAB REF 16:20
PROVIDERS: ATTEND Internal Medicine
DX: R05 Cough (principal); R50.9 Fever, unspecified

== ENCOUNTER → 2019-10-03 | Outpatient (CLI) | payer MEDICARE | LOC: M LABSMTC 13:41 | PROVIDERS: ATTEND Family Medicine | DX: Z11.59 Encounter for screening for other viral diseases (principal); Z20.828 Contact with and (suspected) exposure to other viral communicable diseases ==

== ENCOUNTER → 2019-12-28 | Outpatient (REF) | payer MEDICARE, MEDICAID ==
[~2019-12-28] MED LIST changes: +CIPR-250 PO; +FISH1000 PO; +HYDR-3713; +IBUP-1022 PO; +IBUP200C25 PO; +NAPR220C23 PO; +RITA20TA PO; +TOPI100T9 PO; +XANA0.25 PO
== END ==
LOC: M LAB REF 21:43
PROVIDERS: ATTEND Physician Assistant Medical
DX: N39.0 Urinary tract infection, site not specified (principal)

== ENCOUNTER → 2020-01-03 | Outpatient (CLI) | payer MEDICARE | LOC: M LABSMTC 10:21 | PROVIDERS: ATTEND Anesthesiology | DX: Z01.818 Encounter for other preprocedural examination (principal); Z11.59 Encounter for screening for other viral diseases | CPT/HCPCS: C9803; U0003 ==

== ENCOUNTER 2020-01-06 08:36 | Day surgery (SDC) | payer MEDICARE, MEDICAID ==
[2020-01-06] VITALS (7 sets, daily range): BP systolic 110–141; BP diastolic 57–76
[~2020-01-06] VITALS: Ht 175.3 cm; Wt 72.1 kg
[~2020-01-06 08:36] MED LIST changes: -HYDR-3713; +HYDROmorphone HCL 2 MG/ML 1ML VIAL (J1170) As Ordered ONE; -IBUP-1022 PO; +LIDOCAINE 1% MDV 20ML VIAL SQ PRN; +LIDOCAINE 2% 100MG/5ML SDV (FOR ANES.) As Ordered ONE; +LR 1,000 ML IV ONE; +MIDAZOLAM INJ 2MG/2ML VIAL (J2250 PER 1MG) As Ordered ONE; +ONDANSETRON 4MG/2ML VIAL As Ordered ONE; +ROCURONIUM BROMIDE 50 MG/5 ML VIAL As Ordered ONE; +ceFAZolin SOD 2 GM in IV 1 EA IV ONE; +dexameTHASONE 4 MG/ML 1ML VIAL (J1100 PER 1MG) As Ordered ONE; +fentaNYL 100 MCG/2 ML INJECTION (J3010) As Ordered ONE; +propofoL 200 MG/20 ML VIAL As Ordered ONE
[2020-01-06 09:03] LABS: HEMATOCRIT 36.9 % (36.0-47.0); HEMOGLOBIN 11.9 g/dl (12.0-15.5); MEAN CORPUSCULAR HEMOGLOBIN 30.2 pg (27.0-33.0); MEAN CORPUSCULAR HGB CONC 32.2 g/dl (32.0-36.5); MEAN CORPUSCULAR VOLUME 93.7 fl (80.0-96.0); PLATELET COUNT, AUTOMATED 247 10^3/uL (150-450); RED BLOOD COUNT 3.94 10^6/uL (4.00-5.40); WHITE BLOOD COUNT 5.2 10^3/uL (4.0-10.0)
[2020-01-06] MEDS ORDERED: ceFAZolin SOD 2 GM in IV 1 EA IV ONE (11:00)
[2020-01-06] MEDS ORDERED: ACETAMINOPHEN 1000MG 100ML IV BTL (OFIRMEV) (J0131 PER 10MG) As Ordered ONE (11:34)
[2020-01-06] MEDS ORDERED: KETOROLAC 60MG 2ML VIAL As Ordered ONE (11:35)
[2020-01-06] MEDS ORDERED: SUGAMMADEX SODIUM 500 MG/5 ML VIAL (BRIDION) As Ordered ONE (11:35)
[2020-01-06] MEDS ORDERED: GLYCOPYRROLATE INJ 0.2 MG/ML 2 ML VIAL As Ordered ONE (11:52)
[2020-01-06] MEDS ORDERED: ROCURONIUM BROMIDE 50 MG/5 ML VIAL As Ordered ONE (11:54)
[2020-01-06] MEDS ORDERED: ePHEDrine SULFATE 25 MG/5 ML(5MG/ML) SYRINGE As Ordered ONE (12:43)
[2020-01-06] MEDS ORDERED: NALBUPHINE HCL 10 MG/ML AMP (J2300) IV PRN (13:45)
[2020-01-06] MEDS ORDERED: fentaNYL 100 MCG/2 ML INJECTION (J3010) IV PRN (13:45)
[2020-01-06] MEDS: LR 1,000 ML IV SCH ×2 (13:45→20:03)
[2020-01-06] MEDS ORDERED: LR 1,000 ML IV SCH (13:45)
[2020-01-06] MEDS ORDERED: MORPHINE 1MG/ML IN 0.9% NACL 100ML IV BAG IV PRN (13:45)
[2020-01-06] MEDS ORDERED: METOCLOPRAMIDE INJ 10MG/2ML VIAL (J2765 PER 1) IV PRN (13:45)
[2020-01-06] MEDS ORDERED: NS 1,000 ML IV SCH (13:45)
[2020-01-06] MEDS ORDERED: diphenhydrAMINE 50MG/ML VIAL (J1200) IV PRN (13:45)
[2020-01-06] MEDS ORDERED: EPIDURAL/PCA KEYS XX PRN (13:45)
[2020-01-06] MEDS ORDERED: PERCOCET 5MG/325MG TAB PO PRN (13:45)
[2020-01-06] MEDS ORDERED: ALPRAZolam 0.25 MG TAB PO PRN (13:45)
[2020-01-06] MEDS ORDERED: ONDANSETRON 4MG/2ML VIAL IV PRN (13:45)
[2020-01-06] MEDS ORDERED: NALOXONE INJ 0.4MG/1ML VIAL (J2310 PER 1MG) IV PRN (13:45)
[2020-01-06] MEDS ORDERED: METOCLOPRAMIDE INJ 10MG/2ML VIAL (J2765 PER 1) As Ordered ONE (14:46)
[2020-01-06] MEDS: OMEGA-3 1000MG CAPSULE PO SCH (17:57)
[2020-01-06] MEDS: MULTIVITAMINS/MINERALS THERAP 1 TAB PO SCH (17:57)
[2020-01-06] MEDS: MONTELUKAST 10 MG TAB PO SCH (18:44)
[2020-01-06] MEDS: IBUPROFEN 600MG TAB PO PRN (20:04)
[2020-01-06] MEDS ORDERED: traZODone 50 MG TAB PO SCH (21:00)
[2020-01-06] MEDS ORDERED: TOPIRAMATE (TopAMAX) 100 MG TAB PO SCH (21:00)
[2020-01-07] VITALS: BP 118/65
[2020-01-07] MEDS: IBUPROFEN 600MG TAB PO PRN ×2 (02:05→08:12)
[2020-01-07] MEDS: LR 1,000 ML IV SCH (03:31)
[2020-01-07 04:00] VITALS: BP 111/63
[2020-01-07] MEDS ORDERED: NORCO, ANEXSIA 5/325MG TABLET (HYDROcodone/ACETAMINOPHEN) PO PRN (06:00)
[2020-01-07 06:27] LABS: BASO % 0.2 % (0.0-1.0); EOS % 0.3 % (0.0-3.0); HEMATOCRIT 29.3 % (36.0-47.0); LYMPH # 1.7 10^3/uL (1.5-5.0); MEAN CORPUSCULAR HEMOGLOBIN 31.3 pg (27.0-33.0); MEAN CORPUSCULAR HGB CONC 33.1 g/dl (32.0-36.5); MEAN CORPUSCULAR VOLUME 94.5 fl (80.0-96.0); MONO # 0.9 10^3/uL (0.0-0.8); MONO % 9.9 % (0.0-5.0); NEUTROPHILS # 6.3 10^3/uL (1.5-8.5); NEUTROPHILS % 70.2 % (36.0-66.0); PLATELET COUNT, AUTOMATED 189 10^3/uL (150-450); WHITE BLOOD COUNT 8.9 10^3/uL (4.0-10.0)
[2020-01-07 06:30] LABS: HEMOGLOBIN 9.7 g/dl (12.0-15.5)
[2020-01-07 08:00] VITALS: BP 114/63
[2020-01-07] MEDS: MULTIVITAMINS/MINERALS THERAP 1 TAB PO SCH (08:10)
[2020-01-07] MEDS: OMEGA-3 1000MG CAPSULE PO SCH (08:10)
[2020-01-07] MEDS: MONTELUKAST 10 MG TAB PO SCH (08:13)
[2020-01-07] MEDS ORDERED: buPROPion **XL** TABLET 150MG (WELLBUTRIN XL) PO SCH (09:00)
[2020-01-07] MEDS ORDERED: CETIRIZINE (ZyrTEC) 10 MG TAB PO SCH (09:00)
[2020-01-07] MEDS ORDERED: METHYLPHENIDATE 5 MG TAB PO SCH (09:00)
[2020-01-07] MEDS ORDERED: TOPIRAMATE (TopAMAX) 25 MG TAB PO SCH (09:00)
[2020-01-07] MEDS ORDERED: IBUP-1022 PO (09:14)
[2020-01-07] MEDS ORDERED: HYDR-3713 (09:14)
--- NOTE | 2020-01-13 17:29 | RO ---
DATE OF PROCEDURE: 01/06/2020 PREOPERATIVE DIAGNOSIS: Pain, bleeding, left ovarian cyst. POSTOPERATIVE DIAGNOSIS: Pain, bleeding, left ovarian cyst. PROCEDURE: Laparoscopic-assisted vaginal hysterectomy with left salpingo-oophorectomy and the proximal portion of the right tube was removed. She had previous aggressive tubal ligation and the fimbriated end of the tube was snug enough to the right ovary, which she wanted to retain, and close to the right ovary and blood supply, so we left that. Certainly no cyst or other abnormalities on it, completely normal looking, just close to blood supply on that ovary that she wanted to keep. SURGEON: Dr. Chayito Lucas [employer]ER: None. ANESTHESIA: General endotracheal anesthesia. DESCRIPTION OF PROCEDURE: Tracy was brought to the operating room where sufficient general endotracheal anesthesia was induced, and she was prepped, draped and positioned in the usual sterile fashion. The uterine manipulator was placed with some effort because the patient had previous endometrial ablation, which had not been successful, but it was placed and the Aviles with the ability to backfill was placed. We then turned our attention to the abdominal portion of the procedure. A transverse semilunar incision was made below the umbilicus. Sharp and blunt dissection continued to the level of the rectus fascia, transverse incision was made, #0 Vicryl retention sutures were placed, the peritoneum was entered under direct visualization, and the Alex cannula was placed in an open laparoscopic technique and sutured in place with the #0 Vicryl retention sutures. CO2 insufflation was then begun. After adequate CO2 insufflation, the peritoneal cavity was visualized. There were normal shiny peritoneal surfaces throughout. There was no excrescence, ascites, nor exudate. There was a left ovarian cyst as expected preoperatively. This appeared to be simple and was, of course, sent to the pathologist and was removed intact with the procedure. The patient did have somewhat distended bowel, more so than is typically seen. This was generalized distention, not any specific area. I did not see specific diverticula, but I would say that from a subjective standpoint, the bowel was more distended than you would typically see. Did have apparent peristalsis and normal activity. There just were not any portions that were deflated and typically you would see some areas that had that, so did not seem otherwise out of the norm. I did take some pictures and upper abdominal evaluation is normal, and, again, there were no worrisome appearing lesions per se. The right ovary was normal. She had scarring from her previous tubal ligation as expected. The fimbriated end that remained on the right side was attached on that ovary fairly close to its blood supply, and I decided not to risk disrupting that, just go after that little fimbriated portion, so only the proximal portion of the right tube was removed. Working through the operative port on the umbilical port with the laparoscope, we used the 45 Enseal to carefully cauterize and transect the infundibulopelvic ligament on the left, then worked our way through the broad ligament to the round, and freed the superior aspect of the uterus and ovary on that side. Then, turned our attention to the right side where the utero-ovarian suspensory ligament was carefully cauterized and ligated and transected, and then we worked our way through the round ligament on the right side as well. And when we had that dissection down so that the superior aspect of the uterus was freed, we went ahead and turned our attention to the vaginal portion of the case. The instruments were removed from above but the trocar left in place in case we needed to go back in, and pressure was left up but the CO2 turned off, so that we would be able to have any of the blood that was present come out. And she was removed from some of the Trendelenburg but not all. Then, the uterine manipulator was removed and single-tooth tenaculum was placed on the anterior and posterior aspect of the cervix. With retractors in place, a circumferential incision was made around the base of the cervix, and the cardinal ligaments were carefully isolated, clamped, transected and ligated using de Stack clamp and #0 Vicryl suture, which was used throughout this portion of the case. We then entered posteriorly. We did have a little bit of blood come out with that but not much, and then carefully clamped, transected and ligated the uterosacrals, which were held for later re-securing to the cuff. The Tracy weighted was placed and then anteriorly we freed the bladder flap and then carefully worked our way along the lateral aspect of the uterine vasculature. We did have a little bit of backbleeding from the uterus along the right side, and this was oozing during the case. One of the pedicles had to be re-sewn on that side, but we were able to see and secure it and then carefully delivered the uterus. We transected that pedicle so that we could see better and then also delivered the left ovary and tube, again with the cyst intact. The uterus was about 260 grams, so over 250. It was weighed in the room, and after we had the uterus out and we had oversewn the pedicle on the right side that had been bleeding, we were able to confirm good hemostasis. Because this patient had a little bit more than the typical bleeding, we did pause at this time and observe the pedicles for longer than is typical. We then placed angle stitches of #0 Vicryl, re-secured the uterosacrals and closed the cuff with a running locked stitch of #0 Vicryl. Since we were able to visualize the pedicles, confirm normalcy, we decided not to look again above. We did backfill the bladder, of course, and confirm lack of injury, and then, of course, remove the Alex from the umbilical site and used the #0 Vicryl suture at the fascia and then #3-0 Vicryl at the skin, and placed dry sterile dressing there, and the procedure was then ended. Estimated blood loss for the procedure: About 350 mL. Fluid replacement was crystalloid. Complications: None. Condition and Disposition: Tracy tolerated the procedure well and was recovering in the recovery room in good condition.
== END 2020-01-07 11:10 | disposition home or self-care (01) ==
LOC: M SDC 08:36 → M PED 14:55 → M SDC 01-07 11:10
PROVIDERS: ATTEND Obstetrics & Gynecology
DX: N92.0 Excessive and frequent menstruation with regular cycle (principal); N94.11 Superficial (introital) dyspareunia; N72 Inflammatory disease of cervix uteri; N80.0 Endometriosis of uterus; N83.202 Unspecified ovarian cyst, left side; K21.9 Gastro-esophageal reflux disease without esophagitis; Z87.891 Personal history of nicotine dependence; F41.9 Anxiety disorder, unspecified; F32.9 Major depressive disorder, single episode, unspecified; M79.7 Fibromyalgia; Z88.0 Allergy status to penicillin; Z88.2 Allergy status to sulfonamides; Z88.8 Allergy status to other drugs, medicaments and biological substances; Z91.040 Latex allergy status; Z79.899 Other long term (current) drug therapy
CPT/HCPCS: 36415; 58571; 85025; 85027; 86850; 86900; 86901; 88307; 96360; 96361; J0131; J0690; J1100; J1170; J1885; J2250; J2405; J3010

== ENCOUNTER 2020-01-11 17:50 | Emergency (ER) | payer MEDICARE, MEDICAID ==
[~2020-01-11] VITALS: Ht 175.3 cm; Wt 72.7 kg
[~2020-01-11 17:50] MED LIST changes: +HYDR-3713; -HYDROmorphone HCL 2 MG/ML 1ML VIAL (J1170) As Ordered ONE; +IBUP-1022 PO; -LIDOCAINE 1% MDV 20ML VIAL SQ PRN; -LIDOCAINE 2% 100MG/5ML SDV (FOR ANES.) As Ordered ONE; -LR 1,000 ML IV ONE; -MIDAZOLAM INJ 2MG/2ML VIAL (J2250 PER 1MG) As Ordered ONE; -ONDANSETRON 4MG/2ML VIAL As Ordered ONE; -ROCURONIUM BROMIDE 50 MG/5 ML VIAL As Ordered ONE; -ceFAZolin SOD 2 GM in IV 1 EA IV ONE; -dexameTHASONE 4 MG/ML 1ML VIAL (J1100 PER 1MG) As Ordered ONE; -fentaNYL 100 MCG/2 ML INJECTION (J3010) As Ordered ONE; -propofoL 200 MG/20 ML VIAL As Ordered ONE
[2020-01-11] MEDS ORDERED: NS 1,000 ML IV ONE (19:15)
[2020-01-11 20:12] LABS: BASO % 0.3 % (0.0-1.0); EOS # 0.3 10^3/uL (0.0-0.5); EOS % 4.9 % (0.0-3.0); HEMATOCRIT 34.1 % (36.0-47.0); LYMPH # 1.4 10^3/uL (1.5-5.0); LYMPH % 22.7 % (24.0-44.0); MEAN CORPUSCULAR HEMOGLOBIN 30.3 pg (27.0-33.0); MEAN CORPUSCULAR HGB CONC 32.3 g/dl (32.0-36.5); MEAN CORPUSCULAR VOLUME 93.9 fl (80.0-96.0); MONO # 0.6 10^3/uL (0.0-0.8); MONO % 9.5 % (0.0-5.0); NEUTROPHILS # 3.9 10^3/uL (1.5-8.5); NEUTROPHILS % 62.1 % (36.0-66.0); PLATELET COUNT, AUTOMATED 253 10^3/uL (150-450); RED BLOOD COUNT 3.63 10^6/uL (4.00-5.40); WHITE BLOOD COUNT 6.3 10^3/uL (4.0-10.0)
[2020-01-11 20:47] LABS: ALBUMIN 3.7 GM/DL (3.2-5.2); ALT/SGPT 32 U/L (12-78); BILIRUBIN,TOTAL 0.2 MG/DL (0.2-1.0); BLOOD UREA NITROGEN 16 MG/DL (7-18); CARBON DIOXIDE LEVEL 25 MEQ/L (21-32); CHLORIDE LEVEL 108 MEQ/L (98-107); CREATININE FOR GFR 0.97 MG/DL (0.55-1.30); GLOMERULAR FILTRATION RATE > 60.0 (>58); GLUCOSE, FASTING 76 MG/DL (70-100); POTASSIUM SERUM 3.9 MEQ/L (3.5-5.1); SODIUM LEVEL 140 MEQ/L (136-145); TOTAL PROTEIN 7.1 GM/DL (6.4-8.2)
--- NOTE | 2020-01-11 22:04 | REPVR ---
PROCEDURE INFORMATION: Exam: US Nonobstetric Pelvis; Complete Exam date and time: 01/11/2020 9:06 PM Age: 44 years old Clinical indication: Other: Fever; Pelvic pain; Prior surgery; Surgery date: 3-7 days post-operative; Surgery type: Hysterectomy and lt oophorectomy and bilat tubes removed; Additional info: S/P hyst thurs pain/swelling/fever ? abscess TECHNIQUE: Imaging protocol: Transabdominal pelvic nonobstetric ultrasound. Complete exam. Real time ultrasound with image documentation. COMPARISON: CT ABD PELVIS W/O FOL BY WIT 06/25/2018 4:12 PM FINDINGS: Uterus/cervix: Status post hysterectomy. Right adnexa: Right ovary is not seen secondary to overlying bowel gas shadow. Left adnexa: Status post left oophorectomy. Free fluid: Complex fluid collection in the posterior cul de sac measuring 4.7 x 5.7 x 3.3 cm. Findings may represent postop hematoma versus an early abscess formation, clinical correlation and follow-up is recommended. Bladder: Urinary bladder is unremarkable measuring 6.3 x 5.3 x 8.4 cm. IMPRESSION: Complex fluid collection in the posterior cul de sac measuring 4.7 x 5.7 x 3.3 cm. Findings may represent postop hematoma versus an early abscess formation, clinical correlation and follow-up is recommended. Status post hysterectomy and left oophorectomy. Right ovary is not seen secondary to overlying bowel gas shadow. Electronically signed by: Doris Frazier On 01/11/2020 22:04:09 PM
[2020-01-12] MEDS ORDERED: metroNIDAZOLE 500 MG in IV 1 EA IV ONE ×2
[2020-01-12] MEDS ORDERED: CLINDAMYCIN 600 MG in IV 1 EA IV ONE ×2
[2020-01-12 00:43] VITALS: BP 114/64
--- NOTE | 2020-01-12 13:22 | ED PDOC ---
Post-Departure Follow-Up dr givens and dr alejandro faxed formal report of pelvic us for fu Will Lugo MD Jan 12, 2020 13:22
== END 2020-01-12 01:42 | disposition home or self-care (01) ==
LOC: M ED 17:50
DX: N99.89 Other postprocedural complications and disorders of genitourinary system (principal); R51 Headache; M79.7 Fibromyalgia; Z79.899 Other long term (current) drug therapy; Z88.0 Allergy status to penicillin; Z88.2 Allergy status to sulfonamides; Z88.8 Allergy status to other drugs, medicaments and biological substances; Z91.040 Latex allergy status

== ENCOUNTER → 2020-03-23 | Outpatient (CLI) | payer MEDICARE, MEDICAID ==
--- NOTE | 2020-03-29 16:53 | REP ---
MAXILLOFACIAL CT STUDY WITHOUT CONTRAST HISTORY: Chronic pansinusitis. COMPARISON: CT study 03/23/2018. CT FINDINGS: Mastoid aeration is normal and symmetric. Frontal sinuses are clear. There is minimal mucosal thickening in the anterior ethmoid air cells bilaterally. There is a small mucous retention cyst along the lateral wall of the right side of the sphenoid sinus. The patient is status post uncinectomy on the right and right middle turbinectomy and ethmoidectomy. The nasoantral window is widely patent. The left ostiomeatal remains patent. There is minimal mucosal thickening in the medial wall of the floor of the right maxillary sinus. The maxillary sinuses are otherwise clear. There is a small aerated choncha bullosa on the left. The nasal septum appears intact and is not deviated. No intraorbital abnormality is seen. Visualized intracranial structures are unremarkable. IMPRESSION: Postoperative changes. Minimal mucosal changes as above. MTDD
== END ==
LOC: M RAD 15:33
PROVIDERS: ATTEND Otolaryngology
DX: J32.4 Chronic pansinusitis (principal)

== ENCOUNTER → 2020-06-13 | Outpatient (REF) | payer MEDICARE, MEDICAID ==
[~2020-06-13] MED LIST changes: -MONT10TA4 PO; +MONT5TAB2 PO; +[UNRECOGNIZED DRUG - CODE]
[2020-06-13 17:46] LABS: APPEARANCE, URINE CLEAR (CLEAR); BACTERIA, URINE AUTO NEGATIVE (NEGATIVE); BILIRUBIN, URINE AUTO NEGATIVE (NEGATIVE); BLOOD, URINE BLOOD NEGATIVE (NEGATIVE); COLOR, URINE STRAW (YELLOW); GLUCOSE, URINE (UA) AUTO NEGATIVE (NEGATIVE); KETONE, URINE AUTO NEGATIVE (NEGATIVE); LEUKOCYTE ESTERASE, URINE AUTO NEGATIVE (NEGATIVE); NITRITE, URINE AUTO NEGATIVE (NEGATIVE); PROTEIN, URINE AUTO NEGATIVE (NEGATIVE); RBC, URINE AUTO 1 /HPF (0-3); SPECIFIC GRAVITY URINE AUTO 1.008 (1.002-1.035); SQUAMOUS EPITHELIAL CELL UR AU 0 /HPF (0-6); UROBILINOGEN, URINE AUTO 0.2 mg/dL (0.0-2.0); WBC, URINE AUTO 0 /HPF (0-3)
== END ==
LOC: M SMT 16:38
PROVIDERS: ATTEND Nurse Practitioner Family
DX: N39.0 Urinary tract infection, site not specified (principal)
CPT/HCPCS: 51798; 81001; 87086; G0463

== ENCOUNTER 2020-06-16 20:46 | Emergency (ER) | payer MEDICARE, MEDICAID ==
[~2020-06-16] VITALS: Ht 177.8 cm; Wt 68.2 kg
[2020-06-16 20:46] VITALS: BP 132/74
[~2020-06-16 20:46] MED LIST changes: -[UNRECOGNIZED DRUG - CODE]
[2020-06-16] MEDS ORDERED: [UNRECOGNIZED DRUG - CODE] (20:54)
[2020-06-16] MEDS ORDERED: BOOSTRIX/ADACEL VACCINE (DIPHTH/PERTUSS/ACELL/TETANUS) 0.5ML SYR IM ONE (22:00)
[2020-06-16] MEDS ORDERED: DERMABOND TOPICAL SKIN ADHESIVE TOP ONE (22:00)
== END 2020-06-16 22:31 | disposition home or self-care (01) ==
LOC: M ED 20:46
DX: S61.211A Laceration without foreign body of left index finger without damage to nail, initial encounter (principal); W26.9XXA Contact with unspecified sharp object(s), initial encounter; Y92.099 Unspecified place in other non-institutional residence as the place of occurrence of the external cause; Y93.G1 Activity, food preparation and clean up; Y99.9 Unspecified external cause status; Z79.899 Other long term (current) drug therapy; Z88.0 Allergy status to penicillin; Z88.2 Allergy status to sulfonamides; Z88.8 Allergy status to other drugs, medicaments and biological substances; Z91.040 Latex allergy status

== ENCOUNTER → 2020-08-25 | Outpatient (REF) | payer MEDICARE, MEDICAID ==
[~2020-08-25] MED LIST changes: +MONT10TA10 PO; -MONT5TAB2 PO; +[UNRECOGNIZED DRUG - CODE]
== END ==
LOC: M LAB REF 16:51
PROVIDERS: ATTEND Internal Medicine
DX: D64.9 Anemia, unspecified (principal)

== ENCOUNTER → 2020-12-14 | Outpatient (REF) | payer MEDICARE, MEDICAID | LOC: M SMT 13:19 | PROVIDERS: ATTEND Specialist | DX: N39.0 Urinary tract infection, site not specified (principal) ==

== ENCOUNTER 2021-01-07 12:55 | Emergency (ER) | payer MEDICARE, MEDICAID ==
[~2021-01-07] VITALS: Ht 175.3 cm; Wt 65.9 kg
[~2021-01-07 12:55] MED LIST changes: -MONT10TA10 PO; +MONT10TA97 PO
[2021-01-07] MEDS ORDERED: ESTR2TAB3 PO (13:46)
[2021-01-07 14:41] VITALS: BP 124/80
== END 2021-01-07 14:52 | disposition home or self-care (01) ==
LOC: M ED 12:55
DX: S46.912A Strain of unspecified muscle, fascia and tendon at shoulder and upper arm level, left arm, initial encounter (principal); X50.9XXA Other and unspecified overexertion or strenuous movements or postures, initial encounter; Y92.9 Unspecified place or not applicable; Y93.9 Activity, unspecified; Y99.9 Unspecified external cause status; K21.9 Gastro-esophageal reflux disease without esophagitis; F41.9 Anxiety disorder, unspecified; F32.9 Major depressive disorder, single episode, unspecified; F43.10 Post-traumatic stress disorder, unspecified; Z79.899 Other long term (current) drug therapy; Z88.0 Allergy status to penicillin; Z88.2 Allergy status to sulfonamides; Z88.8 Allergy status to other drugs, medicaments and biological substances; Z91.040 Latex allergy status

== ENCOUNTER 2021-01-17 12:57 | Outpatient (RCR) | payer MEDICARE, MEDICAID ==
[~2021-01-17 12:57] MED LIST changes: +ESTR2TAB2 PO; +MONT10TA10 PO; -MONT10TA97 PO
== END 2021-01-27 ==
LOC: M PT 12:57
PROVIDERS: ATTEND Orthopaedic Surgery Sports Medicine
DX: M75.42 Impingement syndrome of left shoulder (principal); S43.432A Superior glenoid labrum lesion of left shoulder, initial encounter; X58.XXXA Exposure to other specified factors, initial encounter; Y92.9 Unspecified place or not applicable

== ENCOUNTER → 2021-02-16 | Outpatient (CLI) | payer MEDICARE, MEDICAID ==
--- NOTE | 2021-02-16 15:49 | REP ---
INDICATION: DOG BITE. COMPARISON: None. TECHNIQUE: AP, lateral, oblique views of the right hand FINDINGS: No acute fracture or dislocation. Skeletal structures, joint spaces, and surrounding soft tissues are normal. No subcutaneous emphysema or foreign body. IMPRESSION: Normal right hand radiographs. No evidence for acute injury. <Electronically signed by Jasper Delacruz > 02/16/21 [id number]
== END ==
LOC: M SOG 15:08
PROVIDERS: ATTEND Orthopaedic Surgery Sports Medicine
DX: M25.541 Pain in joints of right hand (principal)

== ENCOUNTER → 2021-02-19 | Outpatient (CLI) | payer MEDICARE, MEDICAID ==
--- NOTE | 2021-02-19 11:22 | REP ---
INDICATION: SECOND READ OF MRI ARTHROGRAM LT SHOULDER AT [facility]. COMPARISON: Radiographs 01/07/2021. TECHNIQUE: Coronal oblique T1, T2 fat sat, sagittal oblique T2 fat sat, axial T2 fat sat, gradient echo. Post arthrogram T1 fat sat and T2 fat sat in multiple planes. FINDINGS: Rotator cuff: There is a partial thickness tear of the very distal aspect of the supraspinatus tendon. There is a full-thickness partial tear of the subscapularis tendon which results in arthrographic contrast extension into the subacromial/subdeltoid bursa. Acromioclavicular joint: There are mild hypertrophic degenerative changes of the acromioclavicular joint. Acromion: Type 1, there is mild downward sloping of the acromion. Biceps Tendon: In bicipital groove, no tenosynovitis. Hill Sach's deformity: None. Deltoid muscle: No abnormal signal. Biceps labral complex: Intact. Labrum: No tear. Cartilage: There is mild chondromalacia at the glenohumeral joint. Bone marrow: There is a well-defined round subcortical bone lesion in the lateral aspect of the humeral neck which measures approximately 1.2 cm in diameter. Is mildly hyperintense on T2 weighted images and is hypointense on T1 weighted images. The overlying cortex is intact. There is no associated soft tissue mass. There is a sharp zone of transition. These are all findings which favor a benign lesion. Joint fluid: No effusion. IMPRESSION: Partial-thickness tear distal supraspinatus tendon. Full-thickness partial tear of the subscapularis tendon. Mild hypertrophic degenerative changes acromioclavicular joint, type 1 acromion with mild downward sloping. No evidence of labral tear. Well-defined round subcortical bone lesion in the humeral neck laterally 1.2 cm in diameter, demonstrates characteristics most consistent with a benign lesion. For more complete evaluation of this bone lesion, pre and post gadolinium MR imaging may be performed. <Electronically signed by Celso Gabriel > 02/19/21 111
== END ==
LOC: M RAD 10:43
PROVIDERS: ATTEND Orthopaedic Surgery Sports Medicine
DX: S46.892A Other injury of other muscles, fascia and tendons at shoulder and upper arm level, left arm, initial encounter (principal); X58.XXXA Exposure to other specified factors, initial encounter; Y92.9 Unspecified place or not applicable

== ENCOUNTER → 2021-02-27 | Outpatient (RCR) | payer MEDICARE, MEDICAID | LOC: M PT 01-31 11:26 | PROVIDERS: ATTEND Orthopaedic Surgery Sports Medicine | DX: M75.42 Impingement syndrome of left shoulder (principal); S43.432D Superior glenoid labrum lesion of left shoulder, subsequent encounter; X58.XXXD Exposure to other specified factors, subsequent encounter; Y92.9 Unspecified place or not applicable; Y93.9 Activity, unspecified; Y99.9 Unspecified external cause status ==

== ENCOUNTER → 2021-02-28 | Outpatient (CLI) | payer MEDICARE, MEDICAID ==
[~2021-02-28] MED LIST changes: +ISOVUE-300 61% 50ML VIAL As Ordered ONE; +LIDOCAINE 1% MDV 20ML VIAL As Ordered ONE; +methylPREDNISolone SUSP 40MG/ML 1ML VIAL (DEPO MEDROL) As Ordered ONE
--- NOTE | 2021-02-28 17:49 | REP ---
INDICATION: ADHESIVE CAPSULITIS OF LT SHOULDER. COMPARISON: None TECHNIQUE: The procedure was performed by Ju Spencer [facility], under the direct supervision of Dr. Gabriel. The benefits and risks of the procedure were explained to the patient, and an informed consent was obtained. Directly prior to the start of the procedure, a formal time-out was completed in the procedure room. The left glenohumeral joint space was localized using fluoroscopic guidance. The skin was prepped and draped in a sterile fashion. Approximately 5 mL of 1% Lidocaine 10 mg/ml was used as a local anesthetic. Using fluoroscopic guidance, a #22 gauge spinal needle was inserted and advanced into the left glenohumeral joint space. Approximately 1 mL of Isovue 300 was injected to verify placement. Five mL of a solution containing 3 mL 1% lidocaine 10 mg/ml and 2 mL Depo-Medrol 40 milligrams/milliliter was injected into the joint space. The needle was removed and hemostasis was achieved. FINDINGS: The patient tolerated the procedure well and there were no immediate complications. IMPRESSION: 1. Fluoroscopically guided intra-articular left shoulder pain injection. 0.1 minutes of fluoroscopy time was utilized for this procedure. Some fluoroscopic images are performed with last image hold technology. These images require no additional radiation. <Electronically signed by Ju Spencer > 02/28/21 1620 <Electronically signed by Celso Gabriel > 02/28/21 [id number]
== END ==
LOC: M RADPRO 15:21
PROVIDERS: ATTEND Orthopaedic Surgery Sports Medicine
DX: M75.02 Adhesive capsulitis of left shoulder (principal)
CPT/HCPCS: 20610; 77002; J1030; Q9967

== ENCOUNTER → 2021-03-22 | Outpatient (REF) | payer MEDICARE, MEDICAID ==
[~2021-03-22] MED LIST changes: -ISOVUE-300 61% 50ML VIAL As Ordered ONE; -LIDOCAINE 1% MDV 20ML VIAL As Ordered ONE; -methylPREDNISolone SUSP 40MG/ML 1ML VIAL (DEPO MEDROL) As Ordered ONE
[2021-03-22 17:47] LABS: FOLATE 12.8 NG/ML; VITAMIN B12 LEVEL 489 PG/ML
== END ==
LOC: M LAB REF 15:59
PROVIDERS: ATTEND Internal Medicine
DX: R41.3 Other amnesia (principal); R53.83 Other fatigue

== ENCOUNTER 2021-03-28 15:15 | Outpatient (RCR) | payer MEDICARE, MEDICAID | END 2021-03-29 | LOC: M PT 15:15 | PROVIDERS: ATTEND Orthopaedic Surgery Sports Medicine | DX: M75.42 Impingement syndrome of left shoulder (principal) ==

== ENCOUNTER → 2021-06-11 | Outpatient (CLI) | payer MEDICARE, MEDICAID ==
[~2021-06-11] MED LIST changes: -ESTR2TAB2 PO; +ESTR2TAB3 PO; -MONT10TA10 PO; +MONT10TA97 PO
[2021-06-11 14:43] LABS: BASO % 0.8 % (0.0-1.0); EOS # 0.2 10^3/uL (0.0-0.5); EOS % 3.2 % (0.0-3.0); HEMATOCRIT 39.9 % (36.0-47.0); LYMPH # 1.9 10^3/uL (1.5-5.0); MEAN CORPUSCULAR HEMOGLOBIN 30.7 pg (27.0-33.0); MEAN CORPUSCULAR HGB CONC 32.6 g/dl (32.0-36.5); MEAN CORPUSCULAR VOLUME 94.3 fl (80.0-96.0); MONO # 0.6 10^3/uL (0.0-0.8); MONO % 11.7 % (2.0-8.0); NEUTROPHILS # 2.3 10^3/uL (1.5-8.5); NEUTROPHILS % 45.9 % (36.0-66.0); PLATELET COUNT, AUTOMATED 228 10^3/uL (150-450); RED BLOOD COUNT 4.23 10^6/uL (4.00-5.40)
[2021-06-11 15:21] LABS: ERYTHROCYTE SEDIMENTATION RATE 6 mm/hr (0-20)
[2021-06-11 16:30] LABS: ALBUMIN 3.7 GM/DL (3.2-5.2); ALT/SGPT 35 U/L (12-78); BILIRUBIN,TOTAL 0.2 MG/DL (0.2-1.0); BLOOD UREA NITROGEN 20 MG/DL (7-18); CALCIUM LEVEL 9.3 MG/DL (8.5-10.1); CARBON DIOXIDE LEVEL 27 MEQ/L (21-32); CHLORIDE LEVEL 110 MEQ/L (98-107); CREATININE FOR GFR 0.79 MG/DL (0.55-1.30); GLOMERULAR FILTRATION RATE > 60.0 (>58); GLUCOSE, FASTING 75 MG/DL (70-100); POTASSIUM SERUM 4.3 MEQ/L (3.5-5.1); RHEUMATOID FACTOR QUANT < 10.0 IU/ML (<15.0); SODIUM LEVEL 141 MEQ/L (136-145); VITAMIN B12 LEVEL 296 PG/ML
[2021-06-11 16:35] LABS: FOLATE 13.9 NG/ML
[2021-06-11 20:40] LABS: HEMOGLOBIN A1c 4.9 %
[2021-06-13 11:10] LABS: ALBUMIN 4.25 GM/DL (3.29-5.55); ALBUMIN % 60.7 % (55.8-66.1); ALPHA-1-GLOBULIN % 3.6 % (2.9-4.9); ALPHA-1-GLOBULINS 0.25 GM/DL (0.17-0.41); ALPHA-2-GLOBULINS % 8.6 % (7.1-11.8); BETA-1-GLOBULINS 0.41 GM/DL (0.28-0.60); BETA-1-GLOBULINS % 5.8 % (4.7-7.2); BETA-2-GLOBULINS 0.31 GM/DL (0.19-0.55); BETA-2-GLOBULINS % 4.4 % (3.2-6.5); GAMMA GLOBULIN % 16.9 % (11.1-18.8); GAMMA GLOBULINS 1.18 GM/DL (0.65-1.58)
[2021-06-17 21:11] LABS: ANTINUCLEAR ANTIBODIES DIRECT Negative (Negative); VITAMIN B1 LEVEL WHOLE BLOOD 87.7 nmol/L (66.5-200.0); VITAMIN E(ALPHA TOCOPHEROL) 8.7 mg/L (7.0-25.1); VITAMIN E(GAMMA TOCOPHEROL) 0.6 mg/L (0.5-5.5)
== END ==
LOC: M LAB 13:50
PROVIDERS: ATTEND Psychiatry & Neurology Neurology
DX: R41.89 Other symptoms and signs involving cognitive functions and awareness (principal)

== ENCOUNTER 2021-07-19 17:41 | Emergency (ER) | payer MEDICARE, MEDICAID ==
[~2021-07-19] VITALS: Ht 182.9 cm; Wt 74.6 kg
[2021-07-19 19:05] VITALS: BP 117/68
== END 2021-07-19 21:34 | disposition left against medical advice (07) ==
LOC: M ED 17:41
DX: Z53.21 Procedure and treatment not carried out due to patient leaving prior to being seen by health care provider (principal)

== ENCOUNTER 2021-10-01 12:34 | Observation (INO) | payer MEDICARE, MEDICAID ==
[~2021-10-01] VITALS: Ht 177.8 cm; Wt 68.2 kg
[2021-10-01] MEDS ORDERED: NS 1,000 ML IV SCH (13:20)
[2021-10-01] MEDS ORDERED: ONDANSETRON 4MG/2ML VIAL IV ONE (13:20)
[2021-10-01] MEDS ORDERED: MORPHINE 4 MG/ML 1ML VIAL/SYRINGE IV PRN (13:20)
[2021-10-01 13:44] LABS: BASO % 0.5 % (0.0-1.0); EOS # 0.2 10^3/uL (0.0-0.5); EOS % 1.9 % (0.0-3.0); HEMATOCRIT 38.3 % (36.0-47.0); LYMPH # 2.2 10^3/uL (1.5-5.0); LYMPH % 28.4 % (24.0-44.0); MEAN CORPUSCULAR HEMOGLOBIN 31.3 pg (27.0-33.0); MEAN CORPUSCULAR HGB CONC 33.9 g/dl (32.0-36.5); MEAN CORPUSCULAR VOLUME 92.1 fl (80.0-96.0); MONO # 0.8 10^3/uL (0.0-0.8); MONO % 10.5 % (2.0-8.0); NEUTROPHILS # 4.6 10^3/uL (1.5-8.5); NEUTROPHILS % 58.3 % (36.0-66.0); PLATELET COUNT, AUTOMATED 239 10^3/uL (150-450); RED BLOOD COUNT 4.16 10^6/uL (4.00-5.40); WHITE BLOOD COUNT 7.9 10^3/uL (4.0-10.0)
[2021-10-01 14:13] LABS: ALBUMIN 3.7 GM/DL (3.2-5.2); ALT/SGPT 22 U/L (12-78); BILIRUBIN,DIRECT 0.1 MG/DL (0.0-0.2); BILIRUBIN,TOTAL 0.4 MG/DL (0.2-1.0); LIPASE 290 U/L (73-393); TOTAL PROTEIN 7.2 GM/DL (6.4-8.2)
[2021-10-01 14:14] LABS: HCG, SERUM QUALITATIVE NEGATIVE (NEGATIVE)
[2021-10-01 14:16] LABS: RSV AMPLIFICATION NEGATIVE (NEGATIVE)
[2021-10-01] MEDS ORDERED: OMEP40CA4 PO (15:21)
[2021-10-01] MEDS ORDERED: ISOVUE-370 76% 100ML VIAL As Ordered ONE (15:44)
[2021-10-01 19:17] LABS: AMPHETAMINES LEVEL URINE NEGATIVE (NEGATIVE); BARBITURATES URINE NEGATIVE (NEGATIVE); BENZODIAZEPINES URINE NEGATIVE (NEGATIVE); CANNABINOIDS URINE NEGATIVE (NEGATIVE); COCAINE METABOLITE URINE NEGATIVE (NEGATIVE); METHADONE URINE NEGATIVE (NEGATIVE); OPIATES URINE POSITIVE (NEGATIVE); PHENCYCLIDINE URINE NEGATIVE (NEGATIVE)
[2021-10-01] MEDS ORDERED: PANTOPRAZOLE 40MG VIAL IV ONE (19:45)
[2021-10-01 20:58] LABS: CK-MB VALUE MASS < 1.0 NG/ML (<3.6); CPK CREATINE PHOSPHOKINASE 47 U/L (26-192); MB/CK RELATIVE INDEX 2.13 (< OR =4)
[2021-10-01] MEDS ORDERED: D 1010004 PO (21:00)
[2021-10-01] MEDS ORDERED: BUPR150T12 PO (21:00)
[2021-10-01] MEDS ORDERED: BIOT1CAP8 PO (21:00)
[2021-10-01] MEDS ORDERED: HOME MED LIST COMPLETE! XX SCH (21:00)
[2021-10-01] MEDS ORDERED: NS 1,000 ML IV ONE (22:10)
[2021-10-01] MEDS ORDERED: ACETAMINOPHEN TAB 650MG DOSE (2X325MG) PO PRN (22:10)
[2021-10-01 23:08] LABS: INR 1.07; PARTIAL THROMBOPLASTIN TIME 35.6 SECONDS (25.9-37.0); PROTHROMBIN TIME 14.3 SECONDS (12.7-14.5)
[2021-10-01 23:20] VITALS: BP 100/68
[2021-10-01] MEDS ORDERED: ALPRAZolam 0.25 MG TAB PO PRN (23:55)
[2021-10-02] MEDS: KETOROLAC 30 MG/ML 1ML VIAL IV PRN ×2 (00:04→06:45)
[2021-10-02] MEDS: traZODone 50 MG TAB PO SCH ×2 (01:47→20:47)
[2021-10-02] MEDS: estradioL 1 MG TAB PO SCH ×2 (01:47→20:47)
[2021-10-02] MEDS: MONTELUKAST 10 MG TAB PO SCH ×2 (01:47→20:47)
[2021-10-02] MEDS: TOPIRAMATE (TopAMAX) 100 MG TAB PO SCH ×2 (01:47→20:47)
[2021-10-02 06:21] LABS: HEMATOCRIT 32.5 % (36.0-47.0); MEAN CORPUSCULAR HEMOGLOBIN 31.9 pg (27.0-33.0); MEAN CORPUSCULAR HGB CONC 33.8 g/dl (32.0-36.5); MEAN CORPUSCULAR VOLUME 94.2 fl (80.0-96.0); PLATELET COUNT, AUTOMATED 172 10^3/uL (150-450); RED BLOOD COUNT 3.45 10^6/uL (4.00-5.40); WHITE BLOOD COUNT 4.8 10^3/uL (4.0-10.0)
[2021-10-02] MEDS: ONDANSETRON 4MG/2ML VIAL IV PRN ×2 (06:46→11:06)
[2021-10-02 06:47] LABS: BLOOD UREA NITROGEN 9 MG/DL (7-18); CALCIUM LEVEL 8.1 MG/DL (8.5-10.1); CARBON DIOXIDE LEVEL 21 MEQ/L (21-32); CHLORIDE LEVEL 116 MEQ/L (98-107); GLOMERULAR FILTRATION RATE > 60.0 (>58); GLUCOSE, FASTING 74 MG/DL (70-100); MAGNESIUM LEVEL 2.2 MG/DL (1.8-2.4); POTASSIUM SERUM 3.9 MEQ/L (3.5-5.1); SODIUM LEVEL 143 MEQ/L (136-145)
[2021-10-02 07:50] VITALS: BP 100/65
[2021-10-02] MEDS: METHYLPHENIDATE 5 MG TAB PO SCH (08:33)
[2021-10-02] MEDS: buPROPion **XL** TABLET 150MG (WELLBUTRIN XL) PO SCH (08:33)
[2021-10-02] MEDS: TOPIRAMATE (TopAMAX) 25 MG TAB PO SCH (08:33)
[2021-10-02] MEDS: CETIRIZINE (ZyrTEC) 10 MG TAB PO SCH (08:33)
[2021-10-02] MEDS: ENOXAPARIN 40MG/0.4ML SYRINGE (J1650 PER 10MG) SC SCH (08:34)
[2021-10-02] MEDS ORDERED: buPROPion **XL** TABLET 150MG (WELLBUTRIN XL) PO SCH (09:00)
[2021-10-02 14:00] VITALS: BP 106/65
[2021-10-03 06:00] VITALS: BP 100/62
[2021-10-03 07:36] LABS: HEMATOCRIT 34.2 % (36.0-47.0); HEMOGLOBIN 11.3 g/dl (12.0-15.5); MEAN CORPUSCULAR HEMOGLOBIN 30.8 pg (27.0-33.0); MEAN CORPUSCULAR VOLUME 93.2 fl (80.0-96.0); PLATELET COUNT, AUTOMATED 201 10^3/uL (150-450); RED BLOOD COUNT 3.67 10^6/uL (4.00-5.40); WHITE BLOOD COUNT 4.6 10^3/uL (4.0-10.0)
[2021-10-03 07:52] LABS: BLOOD UREA NITROGEN 12 MG/DL (7-18); CALCIUM LEVEL 8.7 MG/DL (8.5-10.1); CARBON DIOXIDE LEVEL 22 MEQ/L (21-32); CHLORIDE LEVEL 115 MEQ/L (98-107); CREATININE FOR GFR 0.79 MG/DL (0.55-1.30); GLOMERULAR FILTRATION RATE > 60.0 (>58); GLUCOSE, FASTING 84 MG/DL (70-100); POTASSIUM SERUM 3.9 MEQ/L (3.5-5.1); SODIUM LEVEL 143 MEQ/L (136-145)
[2021-10-03] MEDS: TOPIRAMATE (TopAMAX) 25 MG TAB PO SCH (08:51)
[2021-10-03] MEDS: METHYLPHENIDATE 5 MG TAB PO SCH (08:51)
[2021-10-03] MEDS: buPROPion **XL** TABLET 150MG (WELLBUTRIN XL) PO SCH (08:51)
[2021-10-03] MEDS: ENOXAPARIN 40MG/0.4ML SYRINGE (J1650 PER 10MG) SC SCH (08:51)
[2021-10-03] MEDS: CETIRIZINE (ZyrTEC) 10 MG TAB PO SCH (08:51)
== END 2021-10-03 11:05 | disposition home or self-care (01) ==
LOC: M ED 12:34 → M ED INP 12:35 → ENRESERV 22:48 → M MS5PR 23:20
PROVIDERS: ADMIT Family Medicine; ATTEND Family Medicine
DX: R10.10 Upper abdominal pain, unspecified (principal); R11.0 Nausea; R19.7 Diarrhea, unspecified; I67.1 Cerebral aneurysm, nonruptured; M79.7 Fibromyalgia; F32.A Depression, unspecified; F41.9 Anxiety disorder, unspecified; F90.9 Attention-deficit hyperactivity disorder, unspecified type; J30.1 Allergic rhinitis due to pollen; Z87.442 Personal history of urinary calculi; Z79.899 Other long term (current) drug therapy; Z79.890 Hormone replacement therapy; Z88.0 Allergy status to penicillin; Z88.2 Allergy status to sulfonamides; Z88.1 Allergy status to other antibiotic agents; Z88.8 Allergy status to other drugs, medicaments and biological substances; Z91.040 Latex allergy status
CPT/HCPCS: 36415; 74177; 76705; 80047; 80048; 80076; 80307; 81001; 82550; 82553; 83690; 83735; 84484; 84703; 85025; 85027; 85610; 85730; 87631; 93005; 96361; 96372; 96374; 96375; 96376; 99284; G0378; J1650; J1885; J2270; J2405; Q9967

== ENCOUNTER → 2021-10-11 | Outpatient (CLI) | payer MEDICARE, MEDICAID ==
[~2021-10-11] MED LIST changes: +BIOT1CAP8 PO; +BUPR150T12 PO; +D 1010004 PO; +OMEP40CA4 PO
== END ==
LOC: M WUC 09:46
PROVIDERS: ATTEND Internal Medicine
DX: R06.02 Shortness of breath (principal)

== ENCOUNTER → 2021-10-24 | Outpatient (CLI) | payer MEDICARE, MEDICAID | LOC: M EKG 12:07 | PROVIDERS: ATTEND Orthopaedic Surgery | DX: M75.02 Adhesive capsulitis of left shoulder (principal); R00.1 Bradycardia, unspecified ==

== ENCOUNTER → 2021-11-19 | Outpatient (CLI) | payer MEDICARE, MEDICAID ==
[~2021-11-19] MED LIST changes: +E-Z-GAS II EFFERVESCENT PACKET (SODIUM BICARB./CITRIC ACID/SIMETHICONE) As Ordered ONE; +E-Z-HD 98% w/w 340GM SUSP BTL As Ordered ONE; +E-Z-PAQUE 96% w/w SUSP 176GM BTL As Ordered ONE
== END ==
LOC: M RAD 10:21
PROVIDERS: ATTEND Internal Medicine
DX: R10.13 Epigastric pain (principal)

== ENCOUNTER 2021-12-25 10:35 | Emergency (ER) | payer MEDICARE, MEDICAID ==
[~2021-12-25] VITALS: Ht 175.3 cm; Wt 68.2 kg
[~2021-12-25 10:35] MED LIST changes: -E-Z-GAS II EFFERVESCENT PACKET (SODIUM BICARB./CITRIC ACID/SIMETHICONE) As Ordered ONE; -E-Z-HD 98% w/w 340GM SUSP BTL As Ordered ONE; -E-Z-PAQUE 96% w/w SUSP 176GM BTL As Ordered ONE
[2021-12-25 11:07] VITALS: BP 114/65
[2021-12-25 12:58] LABS: APPEARANCE, URINE CLEAR (CLEAR); BACTERIA, URINE AUTO NEGATIVE (NEGATIVE); BILIRUBIN, URINE AUTO NEGATIVE (NEGATIVE); BLOOD, URINE BLOOD NEGATIVE (NEGATIVE); COLOR, URINE YELLOW (YELLOW); GLUCOSE, URINE (UA) AUTO NEGATIVE (NEGATIVE); KETONE, URINE AUTO 2+ mg/dL (NEGATIVE); LEUKOCYTE ESTERASE, URINE AUTO NEGATIVE (NEGATIVE); MUCUS, URINE SMALL (NEGATIVE); NITRITE, URINE AUTO NEGATIVE (NEGATIVE); PROTEIN, URINE AUTO NEGATIVE (NEGATIVE); RBC, URINE AUTO 3 /HPF (0-3); SPECIFIC GRAVITY URINE AUTO 1.014 (1.002-1.035); SQUAMOUS EPITHELIAL CELL UR AU 1 /HPF (0-6); UROBILINOGEN, URINE AUTO 0.2 mg/dL (0.0-2.0); WBC, URINE AUTO 1 /HPF (0-3)
[2021-12-25] MEDS ORDERED: MORPHINE 4 MG/ML 1ML VIAL/SYRINGE IV ONE (13:00)
[2021-12-25] MEDS ORDERED: ONDANSETRON 4MG 2ML VIAL IV ONE (13:00)
[2021-12-25] MEDS ORDERED: NS 1,000 ML IV ONE (13:00)
[2021-12-25 13:56] LABS: BASO % 0.3 % (0.0-1.0); EOS % 0.2 % (0.0-3.0); HEMATOCRIT 39.4 % (36.0-47.0); LYMPH # 0.8 10^3/uL (1.5-5.0); MEAN CORPUSCULAR VOLUME 93.8 fl (80.0-96.0); MONO # 1.2 10^3/uL (0.0-0.8); NEUTROPHILS # 9.6 10^3/uL (1.5-8.5); PLATELET COUNT, AUTOMATED 230 10^3/uL (150-450); WHITE BLOOD COUNT 11.6 10^3/uL (4.0-10.0)
[2021-12-25] MEDS ORDERED: ISOVUE-370 76% 100ML VIAL As Ordered ONE (14:17)
[2021-12-25 14:20] LABS: ALBUMIN 3.7 GM/DL (3.2-5.2); BILIRUBIN,DIRECT 0.3 MG/DL (0.0-0.2); BILIRUBIN,TOTAL 0.8 MG/DL (0.2-1.0); TOTAL PROTEIN 7.4 GM/DL (6.4-8.2)
[2021-12-25] MEDS ORDERED: CIPROFLOXACIN 500MG TABLET PO ONE (14:40)
[2021-12-25] MEDS ORDERED: metroNIDAZOLE (FLAGYL) 500MG TABLET PO ONE (14:40)
[2021-12-25] MEDS ORDERED: METR-265 PO (14:40)
[2021-12-25] MEDS ORDERED: ONDA4TAB6 PO (14:40)
[2021-12-25] MEDS ORDERED: CIPR-249 PO (14:40)
== END 2021-12-25 14:52 | disposition home or self-care (01) ==
LOC: M ED 10:35
DX: K57.32 Diverticulitis of large intestine without perforation or abscess without bleeding (principal); K21.9 Gastro-esophageal reflux disease without esophagitis; G43.909 Migraine, unspecified, not intractable, without status migrainosus; Z87.442 Personal history of urinary calculi; Z86.79 Personal history of other diseases of the circulatory system; Z79.890 Hormone replacement therapy; Z79.899 Other long term (current) drug therapy; Z88.0 Allergy status to penicillin; Z88.2 Allergy status to sulfonamides; Z88.8 Allergy status to other drugs, medicaments and biological substances; Z91.040 Latex allergy status
CPT/HCPCS: 74177; 80047; 80076; 81001; 83605; 83690; 84702; 85025; 96361; 96374; 96375; 99284; J2270; J2405; Q9967

== ENCOUNTER → 2022-04-12 | Outpatient (CLI) | payer MEDICARE, MEDICAID ==
[~2022-04-12] MED LIST changes: +CIPR-249 PO; +METR-265 PO; +ONDA4TAB6 PO
== END ==
LOC: M RAD 09:17
DX: J34.89 Other specified disorders of nose and nasal sinuses (principal); J32.3 Chronic sphenoidal sinusitis

== ENCOUNTER 2022-05-09 19:10 | Emergency (ER) | payer MEDICARE, MEDICAID ==
[~2022-05-09] VITALS: Ht 177.8 cm; Wt 73.1 kg
[~2022-05-09 19:10] MED LIST changes: -CARA1TAB6 PO; -COLA100C5 PO
[2022-05-09 20:30] LABS: BASO % 0.5 % (0.0-1.0); EOS # 0.2 10^3/uL (0.0-0.5); EOS % 3.4 % (0.0-3.0); HEMATOCRIT 38.6 % (36.0-47.0); HEMOGLOBIN 12.5 g/dl (12.0-15.5); LYMPH # 2.1 10^3/uL (1.5-5.0); LYMPH % 37.8 % (24.0-44.0); MEAN CORPUSCULAR HEMOGLOBIN 30.6 pg (27.0-33.0); MEAN CORPUSCULAR HGB CONC 32.4 g/dl (32.0-36.5); MEAN CORPUSCULAR VOLUME 94.4 fl (80.0-96.0); MONO # 0.6 10^3/uL (0.0-0.8); MONO % 10.3 % (2.0-8.0); NEUTROPHILS # 2.7 10^3/uL (1.5-8.5); NEUTROPHILS % 47.8 % (36.0-66.0); PLATELET COUNT, AUTOMATED 226 10^3/uL (150-450); RED BLOOD COUNT 4.09 10^6/uL (4.00-5.40); WHITE BLOOD COUNT 5.6 10^3/uL (4.0-10.0)
[2022-05-09] MEDS ORDERED: ISOVUE-370 76% 100ML VIAL As Ordered ONE (20:47)
[2022-05-09] MEDS ORDERED: NS 1,000 ML IV ONE (20:50)
[2022-05-09] MEDS ORDERED: MORPHINE 4 MG/ML 1ML VIAL IV ONE (20:50)
[2022-05-09] MEDS ORDERED: ONDANSETRON 4MG 2ML VIAL IV ONE (20:50)
[2022-05-09 20:59] LABS: ALBUMIN 3.6 GM/DL (3.2-5.2); ALKALINE PHOSPHATASE 60 U/L (45-117); ALT/SGPT 28 U/L (12-78); AST/SGOT 24 U/L (7-37); BILIRUBIN,DIRECT < 0.1 MG/DL (0.0-0.2); BILIRUBIN,TOTAL 0.3 MG/DL (0.2-1.0); LIPASE 95 U/L (73-393); TOTAL PROTEIN 6.9 GM/DL (6.4-8.2)
[2022-05-09] MEDS ORDERED: DEXTROSE 15GM (40%) TUBE (GLUTOSE 15) PO ONE (21:05)
[2022-05-09 21:39] LABS: AMYLASE 46 U/L (25-115)
[2022-05-09 22:12] LABS: CK-MB VALUE MASS 1.9 NG/ML (<3.6); MB/CK RELATIVE INDEX 1.33 (< OR =4)
[2022-05-09 23:22] LABS: CK-MB VALUE MASS 1.7 NG/ML (<3.6); MB/CK RELATIVE INDEX 1.24 (< OR =4)
[2022-05-09] MEDS ORDERED: GI COCKTAIL 50ML BTL(HYOSCYAMINE/MAALOX/LIDOCAINE VISCOUS)(1:3:1) PO ONE (23:50)
[2022-05-10] MEDS ORDERED: CARA1TAB6 PO (00:43)
[2022-05-10] MEDS ORDERED: MAGNESIUM CITRATE 300ML BTL PO ONE (00:45)
[2022-05-10] MEDS ORDERED: COLA100C5 PO (00:47)
[2022-05-10 01:00] VITALS: BP 124/88
== END 2022-05-10 01:15 | disposition home or self-care (01) ==
LOC: M ED 19:10
DX: K80.50 Calculus of bile duct without cholangitis or cholecystitis without obstruction (principal); K59.00 Constipation, unspecified; K29.70 Gastritis, unspecified, without bleeding; K76.0 Fatty (change of) liver, not elsewhere classified; K21.9 Gastro-esophageal reflux disease without esophagitis; F41.9 Anxiety disorder, unspecified; F32.9 Major depressive disorder, single episode, unspecified; F43.10 Post-traumatic stress disorder, unspecified; Z87.01 Personal history of pneumonia (recurrent); Z87.442 Personal history of urinary calculi; Z87.448 Personal history of other diseases of urinary system; Z79.899 Other long term (current) drug therapy; Z88.0 Allergy status to penicillin; Z88.2 Allergy status to sulfonamides; Z88.8 Allergy status to other drugs, medicaments and biological substances; Z91.040 Latex allergy status
CPT/HCPCS: 71275; 74177; 76705; 80047; 80076; 81000; 81015; 82150; 82550; 82553; 83690; 84484; 85025; 87635; 93005; 96361; 96374; 96375; 99284; J2405; Q9967

== ENCOUNTER → 2022-05-09 | Outpatient (CLI) | payer MEDICARE, MEDICAID ==
[~2022-05-09] MED LIST changes: +ACET-1349 PO; +CARA1TAB6 PO; +COLA100C5 PO; +OMEG10002 PO
== END ==
LOC: M LABSMTC 11:55
PROVIDERS: ATTEND Anesthesiology
DX: Z01.812 Encounter for preprocedural laboratory examination (principal); Z11.52 Encounter for screening for COVID-19

== ENCOUNTER 2022-05-14 11:16 | Day surgery (SDC) | payer MEDICARE, MEDICAID ==
[~2022-05-14] VITALS: Ht 177.8 cm; Wt 70.3 kg
[~2022-05-14 11:16] MED LIST changes: +CARA1TAB6 PO; +COLA100C5 PO; +NS 1,000 ML IV ONE
[2022-05-14] MEDS ORDERED: GLYCOPYRROLATE INJ 0.2 MG/ML 2 ML VIAL As Ordered ONE (12:32)
[2022-05-14] MEDS ORDERED: LIDOCAINE 2% 100MG/5ML SDV (FOR ANES.) As Ordered ONE (12:32)
[2022-05-14 13:50] VITALS: BP 141/87
== END 2022-05-14 14:05 | disposition home or self-care (01) ==
LOC: M OPP 11:16
PROVIDERS: ATTEND Internal Medicine Gastroenterology
DX: K64.8 Other hemorrhoids (principal); K58.1 Irritable bowel syndrome with constipation; K63.89 Other specified diseases of intestine; K92.1 Melena; K57.30 Diverticulosis of large intestine without perforation or abscess without bleeding; R93.3 Abnormal findings on diagnostic imaging of other parts of digestive tract; R12 Heartburn; R11.0 Nausea; Z79.818 Long term (current) use of other agents affecting estrogen receptors and estrogen levels; Z79.899 Other long term (current) drug therapy; Z88.0 Allergy status to penicillin; Z88.2 Allergy status to sulfonamides; Z88.8 Allergy status to other drugs, medicaments and biological substances; Z91.040 Latex allergy status; Z87.891 Personal history of nicotine dependence; Z87.440 Personal history of urinary (tract) infections; I67.1 Cerebral aneurysm, nonruptured; M79.7 Fibromyalgia; F32.9 Major depressive disorder, single episode, unspecified; F41.9 Anxiety disorder, unspecified; G43.909 Migraine, unspecified, not intractable, without status migrainosus

== ENCOUNTER → 2022-05-30 | Outpatient (CLI) | payer MEDICARE, MEDICAID ==
[~2022-05-30] MED LIST changes: -NS 1,000 ML IV ONE
[2022-05-30 18:10] LABS: FREE T4 0.99 NG/DL (0.89-1.76)
[2022-05-30 18:11] LABS: THYROID STIMULATING HORMONE 1.325 uIU/ML (0.55-4.78)
[2022-05-30 19:20] LABS: HEMOGLOBIN A1c 4.8 % (4.0-6.0)
== END ==
LOC: M PLALAB 13:38
PROVIDERS: ATTEND Physician Assistant Medical
DX: R68.81 Early satiety (principal)

== ENCOUNTER → 2022-09-02 | Outpatient (REF) | payer MEDICARE, MEDICAID ==
[~2022-09-02] MED LIST changes: +TOPI-254 PO; -TOPI50TA9 PO
[2022-09-05 06:08] LABS: ANTI DS-DNA AB Negative (Negative); ANTI-CHROMATIN ANTIBODIES <0.2 AI (0.0-0.9); ANTINUCLEAR ANTIBODIES DIRECT Negative (Negative); CYCLIC CITRULLINATED PEPTIDE < 1 units (0-19); RNP ANTIBODIES <0.2 AI (0.0-0.9); SJOGREN'S ANTI SS-A <0.2 AI (0.0-0.9); SJOGREN'S ANTI SS-B <0.2 AI (0.0-0.9); SMITH ANTIBODIES <0.2 AI (0.0-0.9)
== END ==
LOC: M LAB REF 16:02
PROVIDERS: ATTEND Internal Medicine
DX: M25.59 Pain in other specified joint (principal); R53.83 Other fatigue

== ENCOUNTER → 2022-09-04 | Outpatient (CLI) | payer MEDICARE, MEDICAID | LOC: M RAD 07:27 | PROVIDERS: ATTEND Physician Assistant Medical | DX: R68.81 Early satiety (principal); R11.0 Nausea; R10.13 Epigastric pain | CPT/HCPCS: 78264; A9541 ==

== ENCOUNTER → 2022-09-06 | Outpatient (REF) | payer MEDICARE, MEDICAID ==
[2022-09-06 17:40] LABS: APPEARANCE, URINE CLEAR (CLEAR); BACTERIA, URINE AUTO NEGATIVE (NEGATIVE); BILIRUBIN, URINE AUTO NEGATIVE (NEGATIVE); BLOOD, URINE BLOOD 1+ (NEGATIVE); COLOR, URINE YELLOW (YELLOW); GLUCOSE, URINE (UA) AUTO NEGATIVE (NEGATIVE); KETONE, URINE AUTO TRACE mg/dL (NEGATIVE); LEUKOCYTE ESTERASE, URINE AUTO NEGATIVE (NEGATIVE); MUCUS, URINE SMALL (NEGATIVE); NITRITE, URINE AUTO NEGATIVE (NEGATIVE); PROTEIN, URINE AUTO NEGATIVE (NEGATIVE); RBC, URINE AUTO 2 /HPF (0-3); SPECIFIC GRAVITY URINE AUTO 1.019 (1.002-1.035); SQUAMOUS EPITHELIAL CELL UR AU 1 /HPF (0-6); UROBILINOGEN, URINE AUTO 0.2 mg/dL (0.0-2.0); WBC, URINE AUTO 1 /HPF (0-3)
== END ==
LOC: M SMT 16:58
PROVIDERS: ATTEND Physician Assistant
DX: R31.9 Hematuria, unspecified (principal)
CPT/HCPCS: 51798; 81001; 87086; 88108; G0463

== ENCOUNTER → 2022-10-24 | Outpatient (REF) | payer MEDICARE, MEDICAID ==
[2022-10-24 18:38] LABS: APPEARANCE, URINE CLEAR (CLEAR); BACTERIA, URINE AUTO NEGATIVE (NEGATIVE); BILIRUBIN, URINE AUTO NEGATIVE (NEGATIVE); BLOOD, URINE BLOOD NEGATIVE (NEGATIVE); CALCIUM OXALATE CRYSTALS SMALL; COLOR, URINE YELLOW (YELLOW); GLUCOSE, URINE (UA) AUTO NEGATIVE (NEGATIVE); KETONE, URINE AUTO NEGATIVE (NEGATIVE); LEUKOCYTE ESTERASE, URINE AUTO NEGATIVE (NEGATIVE); NITRITE, URINE AUTO NEGATIVE (NEGATIVE); PROTEIN, URINE AUTO NEGATIVE (NEGATIVE); RBC, URINE AUTO 1 /HPF (0-3); SPECIFIC GRAVITY URINE AUTO 1.013 (1.002-1.035); SQUAMOUS EPITHELIAL CELL UR AU 0 /HPF (0-6); UROBILINOGEN, URINE AUTO 0.2 mg/dL (0.0-2.0); WBC, URINE AUTO 0 /HPF (0-3)
== END ==
LOC: M SMT 16:57
PROVIDERS: ATTEND Physician Assistant
DX: R30.0 Dysuria (principal)

== ENCOUNTER → 2022-11-14 | Outpatient (REF) | payer MEDICARE, MEDICAID | LOC: M LAB REF 17:52 | PROVIDERS: ATTEND Internal Medicine | DX: N39.0 Urinary tract infection, site not specified (principal) ==

== ENCOUNTER 2022-12-22 22:33 | Emergency (ER) | payer MEDICARE, MEDICAID ==
[~2022-12-22] VITALS: Ht 177.8 cm; Wt 77.3 kg
[2022-12-22 23:08] LABS: BASO % 0.5 % (0.0-1.0); EOS # 0.3 10^3/uL (0.0-0.5); EOS % 4.7 % (0.0-3.0); HEMATOCRIT 36.2 % (36.0-47.0); HEMOGLOBIN 11.8 g/dl (12.0-15.5); LYMPH # 2.3 10^3/uL (1.5-5.0); LYMPH % 42.5 % (24.0-44.0); MEAN CORPUSCULAR HEMOGLOBIN 30.8 pg (27.0-33.0); MEAN CORPUSCULAR HGB CONC 32.6 g/dl (32.0-36.5); MEAN CORPUSCULAR VOLUME 94.5 fl (80.0-96.0); MONO # 0.6 10^3/uL (0.0-0.8); MONO % 10.5 % (2.0-8.0); NEUTROPHILS # 2.3 10^3/uL (1.5-8.5); NEUTROPHILS % 41.6 % (36.0-66.0); PLATELET COUNT, AUTOMATED 225 10^3/uL (150-450); RED BLOOD COUNT 3.83 10^6/uL (4.00-5.40); WHITE BLOOD COUNT 5.5 10^3/uL (4.0-10.0)
[2022-12-22 23:34] LABS: CK-MB VALUE MASS 2.2 NG/ML (<3.6)
[2022-12-22 23:35] LABS: LIPASE 26 U/L (12-53)
[2022-12-22 23:38] LABS: ALBUMIN 3.4 G/DL (3.2-5.2); ALKALINE PHOSPHATASE 57 U/L (46-116); ALT/SGPT 19 U/L (7.0-40); AST/SGOT 14 U/L (<34); BILIRUBIN,DIRECT < 0.1 MG/DL (<0.4); BILIRUBIN,TOTAL 0.3 MG/DL (0.3-1.2); BLOOD UREA NITROGEN 15 MG/DL (9-23); CALCIUM LEVEL 8.3 MG/DL (8.5-10.1); CARBON DIOXIDE LEVEL 22 MMOL/L (20-31); CHLORIDE LEVEL 110 MMOL/L (98-107); CPK CREATINE PHOSPHOKINASE 102 U/L (34-145); CREATININE FOR GFR 0.97 MG/DL (0.55-1.30); GLOMERULAR FILTRATION RATE > 60.0 (>58); GLUCOSE, FASTING 90 MG/DL (60-100); MB/CK RELATIVE INDEX 2.15 (< OR =4); POTASSIUM SERUM 3.8 MMOL/L (3.5-5.1); SODIUM LEVEL 140 MMOL/L (136-145); THYROID STIMULATING HORMONE 2.035 uIU/ML (0.55-4.78); TOTAL PROTEIN 6.2 G/DL (5.7-8.2)
[2022-12-23 01:15] LABS: CK-MB VALUE MASS 2.2 NG/ML (<3.6)
[2022-12-23 01:16] LABS: CPK CREATINE PHOSPHOKINASE 107 U/L (34-145); MB/CK RELATIVE INDEX 2.05 (< OR =4)
[2022-12-23] MEDS ORDERED: ASPIRIN 81MG CHEW TABLET PO ONE (02:40)
[2022-12-23] MEDS ORDERED: ISOVUE-370 76% 100ML VIAL As Ordered ONE (02:45)
[2022-12-23 03:44] LABS: CK-MB VALUE MASS 1.9 NG/ML (<3.6)
[2022-12-23] MEDS ORDERED: NAPR-837 PO (04:40)
[2022-12-23 05:00] VITALS: BP 129/65
[2022-12-23 05:03] VITALS: O2SAT 93
[2022-12-23 05:11] VITALS: TEMP 97.6
== END 2022-12-23 05:12 | disposition home or self-care (01) ==
LOC: M ED 22:33
DX: R07.9 Chest pain, unspecified (principal); I49.8 Other specified cardiac arrhythmias; I51.9 Heart disease, unspecified; M79.7 Fibromyalgia; Z86.79 Personal history of other diseases of the circulatory system; Z79.899 Other long term (current) drug therapy; Z88.0 Allergy status to penicillin; Z88.2 Allergy status to sulfonamides; Z88.8 Allergy status to other drugs, medicaments and biological substances; Z91.040 Latex allergy status
CPT/HCPCS: 71045; 71275; 80048; 80076; 82550; 82553; 83690; 83880; 84443; 84484; 85025; 93005; 99285; Q9967

== ENCOUNTER → 2023-01-20 | Outpatient (REF) | payer MEDICARE, MEDICAID ==
[~2023-01-20] MED LIST changes: +NAPR-837 PO
== END ==
LOC: M SFHCWAGY 10:29
PROVIDERS: ATTEND Nurse Practitioner Family
DX: Z12.72 Encounter for screening for malignant neoplasm of vagina (principal)
CPT/HCPCS: 87624; G0123

== ENCOUNTER → 2023-02-03 | Outpatient (CLI) | payer MEDICARE, MEDICAID | LOC: M SLEEP HO 11:11 | PROVIDERS: ATTEND Internal Medicine Cardiovascular Disease | DX: I27.20 Pulmonary hypertension, unspecified (principal); G47.9 Sleep disorder, unspecified; R00.1 Bradycardia, unspecified; R06.83 Snoring ==

== ENCOUNTER → 2023-05-28 | Outpatient (CLI) | payer MEDICARE, MEDICAID ==
[~2023-05-28] MED LIST changes: +TOPI-21 PO; -TOPI-254 PO
== END ==
LOC: M PAIN 13:00
PROVIDERS: ATTEND Anesthesiology
DX: G43.709 Chronic migraine without aura, not intractable, without status migrainosus (principal); F32.A Depression, unspecified; F43.10 Post-traumatic stress disorder, unspecified; F41.9 Anxiety disorder, unspecified; Z87.891 Personal history of nicotine dependence; Z79.899 Other long term (current) drug therapy; Z88.0 Allergy status to penicillin; Z88.1 Allergy status to other antibiotic agents; Z88.2 Allergy status to sulfonamides; Z88.8 Allergy status to other drugs, medicaments and biological substances; Z91.040 Latex allergy status

== ENCOUNTER 2023-09-15 04:26 | Emergency (ER) | payer MEDICARE, MEDICAID ==
[~2023-09-15] VITALS: Ht 177.8 cm; Wt 72.7 kg
[2023-09-15 04:52] LABS: BASO % 0.4 % (0.0-1.0); EOS # 0.2 10^3/uL (0.0-0.5); EOS % 1.9 % (0.0-3.0); HEMATOCRIT 34.3 % (36.0-47.0); HEMOGLOBIN 11.6 g/dl (12.0-15.5); LYMPH # 0.7 10^3/uL (1.5-5.0); LYMPH % 9.4 % (24.0-44.0); MEAN CORPUSCULAR HEMOGLOBIN 31.9 pg (27.0-33.0); MEAN CORPUSCULAR HGB CONC 33.8 g/dl (32.0-36.5); MEAN CORPUSCULAR VOLUME 94.2 fl (80.0-96.0); MONO # 0.7 10^3/uL (0.0-0.8); MONO % 8.7 % (2.0-8.0); NEUTROPHILS # 6.1 10^3/uL (1.5-8.5); NEUTROPHILS % 79.3 % (36.0-66.0); PLATELET COUNT, AUTOMATED 237 10^3/uL (150-450); RED BLOOD COUNT 3.64 10^6/uL (4.00-5.40); WHITE BLOOD COUNT 7.7 10^3/uL (4.0-10.0)
[2023-09-15 05:31] LABS: ALBUMIN 3.3 G/DL (3.2-5.2); ALKALINE PHOSPHATASE 60 U/L (46-116); ALT/SGPT 20 U/L (7.0-40); AST/SGOT 17 U/L (<34); BILIRUBIN,DIRECT 0.1 MG/DL (<0.4); BILIRUBIN,TOTAL 0.4 MG/DL (0.3-1.2); BLOOD UREA NITROGEN 21 MG/DL (9-23); CALCIUM LEVEL 8.7 MG/DL (8.5-10.1); CARBON DIOXIDE LEVEL 22 MMOL/L (20-31); CHLORIDE LEVEL 110 MMOL/L (98-107); CREATININE FOR GFR 0.75 MG/DL (0.55-1.30); GLOMERULAR FILTRATION RATE > 60.0 (>51); GLUCOSE, FASTING 104 MG/DL (60-100); LIPASE 26 U/L (12-53); POTASSIUM SERUM 3.5 MMOL/L (3.5-5.1); SODIUM LEVEL 139 MMOL/L (136-145)
[2023-09-15] MEDS: NS 1,000 ML IV ONE ×2 (05:58)
[2023-09-15] MEDS: KETOROLAC 30 MG/ML 1ML VIAL IV ONE (05:58)
[2023-09-15 06:00] VITALS: TEMP 97.8
[2023-09-15] MEDS ORDERED: ONDA4TAB6 PO (08:03)
[2023-09-15 08:29] VITALS: BP 91/50; O2SAT 99
== END 2023-09-15 08:33 | disposition home or self-care (01) ==
LOC: EDBD 04:26 → M ED 04:26
DX: A09 Infectious gastroenteritis and colitis, unspecified (principal); K21.9 Gastro-esophageal reflux disease without esophagitis; F90.9 Attention-deficit hyperactivity disorder, unspecified type; F32.A Depression, unspecified; Z79.899 Other long term (current) drug therapy; Z88.0 Allergy status to penicillin; Z88.2 Allergy status to sulfonamides; Z88.8 Allergy status to other drugs, medicaments and biological substances; Z91.040 Latex allergy status
CPT/HCPCS: 74176; 80048; 80076; 81001; 83605; 83690; 85025; 87040; 87486; 87507; 87581; 87633; 87798; 96361; 96374; 99284; J1885

== ENCOUNTER → 2023-10-08 | Outpatient (CLI) | payer MEDICARE, MEDICAID ==
[~2023-10-08] MED LIST changes: +FAMO40TA3 PO; +FOLI1TAB11 PO; +HYDR200T46 PO; +METH2.5T48 PO; +OMEP40CA5 PO; +THERTAB52 PO
== END ==
LOC: M PAIN 14:00
PROVIDERS: ATTEND Anesthesiology
DX: G43.709 Chronic migraine without aura, not intractable, without status migrainosus (principal); Z87.891 Personal history of nicotine dependence; Z79.899 Other long term (current) drug therapy; Z88.0 Allergy status to penicillin; Z88.2 Allergy status to sulfonamides; Z88.8 Allergy status to other drugs, medicaments and biological substances; Z91.040 Latex allergy status

== ENCOUNTER → 2023-10-31 | Outpatient (CLI) | payer MEDICARE, MEDICAID ==
[~2023-10-31] MED LIST changes: +BOTOX THERAPEUTIC 100 UNIT VIAL IM ONE; +BUPR-597 PO; -BUPR300T92 PO
== END ==
LOC: M PAIN 08:15
PROVIDERS: ATTEND Anesthesiology
DX: G43.709 Chronic migraine without aura, not intractable, without status migrainosus (principal); F32.A Depression, unspecified; F43.10 Post-traumatic stress disorder, unspecified; F41.9 Anxiety disorder, unspecified; Z87.891 Personal history of nicotine dependence; Z79.899 Other long term (current) drug therapy; Z88.0 Allergy status to penicillin; Z88.1 Allergy status to other antibiotic agents; Z88.2 Allergy status to sulfonamides; Z88.8 Allergy status to other drugs, medicaments and biological substances; Z91.040 Latex allergy status
CPT/HCPCS: 64615; J0585

== ENCOUNTER → 2023-12-12 | Outpatient (CLI) | payer MEDICARE, MEDICAID ==
[~2023-12-12] MED LIST changes: -BOTOX THERAPEUTIC 100 UNIT VIAL IM ONE; +ONDA-282 PO; -ONDA4TAB6 PO
== END ==
LOC: M PAIN 08:15
PROVIDERS: ATTEND Anesthesiology
DX: G43.709 Chronic migraine without aura, not intractable, without status migrainosus (principal); F32.A Depression, unspecified; F43.10 Post-traumatic stress disorder, unspecified; F41.9 Anxiety disorder, unspecified; Z87.891 Personal history of nicotine dependence; Z79.899 Other long term (current) drug therapy; Z88.0 Allergy status to penicillin; Z88.1 Allergy status to other antibiotic agents; Z88.2 Allergy status to sulfonamides; Z88.8 Allergy status to other drugs, medicaments and biological substances; Z91.040 Latex allergy status

== ENCOUNTER 2023-12-19 08:35 | Day surgery (SDC) | payer MEDICARE, MEDICAID ==
[~2023-12-19] VITALS: Ht 177.8 cm; Wt 80.1 kg
[2023-12-19] MEDS ORDERED: MIDAZOLAM INJ 2MG/2ML VIAL As Ordered ONE (09:16)
[2023-12-19] MEDS ORDERED: propofoL 200 MG/20 ML VIAL As Ordered ONE (09:16)
[2023-12-19] MEDS ORDERED: fentaNYL 250 MCG/5 ML INJECTION As Ordered ONE (09:16)
[2023-12-19] MEDS ORDERED: ROCURONIUM BROMIDE 50MG/5ML VIAL As Ordered ONE (09:16)
[2023-12-19] MEDS ORDERED: LIDOCAINE 2% 100MG/5ML SDV (FOR ANES.) As Ordered ONE (09:16)
[2023-12-19] MEDS: LR 1,000 ML IV SCH (09:30)
[2023-12-19] MEDS: ceFAZolin SOD 2 GM in IV 1 EA IV ONE (09:46)
[2023-12-19] MEDS ORDERED: ACETAMINOPHEN 1000MG 100ML IV BAG As Ordered ONE (09:58)
[2023-12-19] MEDS ORDERED: GLYCOPYRROLATE INJ 0.2 MG/ML 2 ML VIAL As Ordered ONE (10:02)
[2023-12-19] MEDS ORDERED: ONDANSETRON 4MG 2ML VIAL As Ordered ONE (10:28)
[2023-12-19] MEDS ORDERED: KETOROLAC 60MG 2ML VIAL As Ordered ONE (10:29)
[2023-12-19] MEDS ORDERED: SUGAMMADEX SODIUM 500 MG/5 ML VIAL (BRIDION) As Ordered ONE (10:30)
[2023-12-19] MEDS ORDERED: fentaNYL 100 MCG/2 ML INJECTION IV PRN (11:05)
[2023-12-19] MEDS ORDERED: LR 1,000 ML IV SCH (11:05)
[2023-12-19] MEDS ORDERED: HYDROMORPHONE HCL 0.5 MG/ 0.5 ML SYRINGE IV PRN (11:05)
[2023-12-19] MEDS ORDERED: NORCO, ANEXSIA 5/325MG TABLET (HYDROcodone/ACETAMINOPHEN) PO PRN ×2 (11:30)
[2023-12-19] MEDS: ONDANSETRON 4MG 2ML VIAL IV PRN (11:32)
[2023-12-19] MEDS: oxyCODONE 5MG TAB PO PRN (11:32)
[2023-12-19] MEDS ORDERED: NS 1,000 ML IV SCH (11:35)
[2023-12-19 12:57] VITALS: BP 126/77; TEMP 96.8; O2SAT 100
== END 2023-12-19 13:00 | disposition home or self-care (01) ==
LOC: M SDC 08:35
PROVIDERS: ATTEND Surgery
DX: K81.1 Chronic cholecystitis (principal); F43.10 Post-traumatic stress disorder, unspecified; K57.92 Diverticulitis of intestine, part unspecified, without perforation or abscess without bleeding; K21.9 Gastro-esophageal reflux disease without esophagitis; M79.7 Fibromyalgia; Z79.899 Other long term (current) drug therapy; F41.9 Anxiety disorder, unspecified; F32.A Depression, unspecified; G43.909 Migraine, unspecified, not intractable, without status migrainosus; Z88.0 Allergy status to penicillin; Z88.2 Allergy status to sulfonamides; Z91.040 Latex allergy status; Z88.8 Allergy status to other drugs, medicaments and biological substances
CPT/HCPCS: 47562; 88304; J0131; J0665; J0690; J1100; J1885; J2250; J2405; J3010

== ENCOUNTER → 2024-04-01 | Outpatient (CLI) | payer MEDICARE, MEDICAID ==
[~2024-04-01] MED LIST changes: +BOTOX THERAPEUTIC 100 UNIT VIAL IM ONE; -MULT200T7 PO; +MULT200T9 PO
== END ==
LOC: M PAIN 15:00
PROVIDERS: ATTEND Anesthesiology
DX: G43.709 Chronic migraine without aura, not intractable, without status migrainosus (principal); F32.A Depression, unspecified; F43.10 Post-traumatic stress disorder, unspecified; F41.9 Anxiety disorder, unspecified; Z87.891 Personal history of nicotine dependence; Z79.899 Other long term (current) drug therapy; Z91.040 Latex allergy status; Z88.0 Allergy status to penicillin; Z88.1 Allergy status to other antibiotic agents; Z88.2 Allergy status to sulfonamides; Z88.8 Allergy status to other drugs, medicaments and biological substances
CPT/HCPCS: 64615; J0585

== ENCOUNTER → 2024-05-07 | Outpatient (CLI) | payer MEDICARE, MEDICAID ==
[~2024-05-07] MED LIST changes: -BOTOX THERAPEUTIC 100 UNIT VIAL IM ONE
== END ==
LOC: M PLAIMG 10:33
PROVIDERS: ATTEND Internal Medicine
DX: R10.9 Unspecified abdominal pain (principal); R31.9 Hematuria, unspecified; N20.0 Calculus of kidney; K57.30 Diverticulosis of large intestine without perforation or abscess without bleeding

== ENCOUNTER → 2024-05-18 | Outpatient (CLI) | payer MEDICARE, MEDICAID | LOC: M PAIN 14:00 | PROVIDERS: ATTEND Nurse Practitioner Family | DX: G43.709 Chronic migraine without aura, not intractable, without status migrainosus (principal); F32.A Depression, unspecified; F43.10 Post-traumatic stress disorder, unspecified; F41.9 Anxiety disorder, unspecified; Z79.899 Other long term (current) drug therapy; Z88.0 Allergy status to penicillin; Z88.1 Allergy status to other antibiotic agents; Z88.2 Allergy status to sulfonamides; Z88.8 Allergy status to other drugs, medicaments and biological substances; Z91.040 Latex allergy status ==

== ENCOUNTER → 2024-10-29 | Outpatient (CLI) | payer MEDICARE, MEDICAID ==
[~2024-10-29] MED LIST changes: -BUPR-597 PO; +BUPR-766 PO; +TOPI-257 PO; -TOPI100T9 PO
== END ==
LOC: M SOG 08:45
PROVIDERS: ATTEND Orthopaedic Surgery
DX: M25.511 Pain in right shoulder (principal); M19.011 Primary osteoarthritis, right shoulder

== ENCOUNTER → 2024-11-05 | Outpatient (CLI) | payer MEDICARE, MEDICAID | LOC: M PLARAD 11:05 | PROVIDERS: ATTEND Orthopaedic Surgery | DX: M25.511 Pain in right shoulder (principal); M19.011 Primary osteoarthritis, right shoulder; M75.81 Other shoulder lesions, right shoulder ==

== ENCOUNTER 2025-01-16 02:12 | Emergency (ER) | payer MEDICARE, MEDICAID ==
[~2025-01-16] VITALS: Ht 177.8 cm; Wt 70.4 kg
[~2025-01-16 02:12] MED LIST changes: -IBUP-1022 PO; +IBUP600T42 PO
[2025-01-16 02:14] VITALS: TEMP 98.4
[2025-01-16] MEDS: diphenhydrAMINE 50 MG/ML VIAL IV STA (05:29)
[2025-01-16] MEDS: HYDROMORPHONE HCL 0.5 MG/0.5 ML SYRINGE IV STA (05:31)
[2025-01-16 05:36] LABS: BASO # 0.1 10^3/uL (0.0-0.2); BASO % 0.7 % (0.0-1.0); EOS # 0.5 10^3/uL (0.0-0.5); EOS % 6.2 % (0.0-3.0); LYMPH # 1.8 10^3/uL (1.5-5.0); LYMPH % 21.9 % (24.0-44.0); MONO # 0.8 10^3/uL (0.0-0.8); MONO % 9.3 % (2.0-8.0); NEUTROPHILS # 5.1 10^3/uL (1.5-8.5); NEUTROPHILS % 61.5 % (36.0-66.0); PLATELET COUNT, AUTOMATED 224 10^3/uL (150-450)
[2025-01-16 06:09] LABS: C REACTIVE PROTEIN QUANTITATIV 1.27 MG/DL (<1.0); CALCIUM LEVEL 8.7 MG/DL (8.5-10.1); CARBON DIOXIDE LEVEL 26 MMOL/L (20-31); CHLORIDE LEVEL 106 MMOL/L (98-107); CREATININE FOR GFR 0.70 MG/DL (0.55-1.30); GLOMERULAR FILTRATION RATE > 90.0 (>51); POTASSIUM SERUM 3.8 MMOL/L (3.5-5.1); SODIUM LEVEL 142 MMOL/L (136-145)
[2025-01-16] MEDS ORDERED: DILA1LIQ2 PO (06:46)
[2025-01-16] MEDS ORDERED: CIPR-249 PO (06:46)
[2025-01-16 07:00] VITALS: BP 133/78; O2SAT 98
[2025-01-16] MEDS: CIPROFLOXACIN 500 MG TABLET PO ONE (07:22)
[2025-01-16] MEDS ORDERED: HYDR2TAB2 PO (14:09)
== END 2025-01-16 07:38 | disposition home or self-care (01) ==
LOC: M ED 02:12
DX: G89.18 Other acute postprocedural pain (principal); Z79.899 Other long term (current) drug therapy; Z88.0 Allergy status to penicillin; Z88.2 Allergy status to sulfonamides; Z88.8 Allergy status to other drugs, medicaments and biological substances; Z91.040 Latex allergy status
CPT/HCPCS: 80048; 85025; 86140; 96374; 96375; 99284; J1171; J1200

== ENCOUNTER 2025-01-26 13:30 | Outpatient (RCR) | payer MEDICARE, MEDICAID ==
[~2025-01-26 13:30] MED LIST changes: +DILA1LIQ2 PO; +HYDR2TAB2 PO; +IBUP-1022 PO; -IBUP600T42 PO
== END 2025-01-27 ==
LOC: M PT 13:30
PROVIDERS: ATTEND Orthopaedic Surgery
DX: M25.511 Pain in right shoulder (principal)

== ENCOUNTER → 2025-02-16 | Outpatient (CLI) | payer MEDICARE, MEDICAID ==
[~2025-02-16] MED LIST changes: -IBUP-1022 PO; +IBUP600T42 PO
[2025-02-16 13:57] LABS: HIV 1&2 SCREEN NEGATIVE (NEGATIVE)
[2025-02-16 14:05] LABS: HEPATITIS C VIRUS ABY INDEX < 0.02 INDEX (<0.8)
[2025-02-16 14:34] LABS: Trichomonas vaginalis (AMP) NOT DETECTED (NEGATIVE)
[2025-02-16 14:58] LABS: GC DNA AMPLIFICATION NEGATIVE (NEGATIVE)
[2025-02-16 15:34] LABS: Trichomonas vaginalis (AMP) NOT DETECTED (NEGATIVE)
[2025-02-16 15:58] LABS: GC DNA AMPLIFICATION NEGATIVE (NEGATIVE)
[2025-02-18 15:23] LABS: HPV APTIMA Not Detected (Not Detected)
== END ==
LOC: M PLALAB 10:21
PROVIDERS: ATTEND Nurse Practitioner Family
DX: Z11.3 Encounter for screening for infections with a predominantly sexual mode of transmission (principal); N73.9 Female pelvic inflammatory disease, unspecified; Z12.72 Encounter for screening for malignant neoplasm of vagina; Z11.51 Encounter for screening for human papillomavirus (HPV)

== ENCOUNTER 2025-02-23 13:30 | Outpatient (RCR) | payer MEDICARE, MEDICAID | END 2025-02-27 | LOC: M PT 13:30 | PROVIDERS: ATTEND Orthopaedic Surgery | DX: M25.511 Pain in right shoulder (principal) ==

== ENCOUNTER 2025-04-27 12:45 | Outpatient (RCR) | payer MEDICARE, MEDICAID | END 2025-04-29 | LOC: M PT 12:45 | PROVIDERS: ATTEND Orthopaedic Surgery | DX: M25.511 Pain in right shoulder (principal) ==

== ENCOUNTER 2025-05-11 13:26 | Outpatient (RCR) | payer MEDICARE, MEDICAID | END 2025-05-29 | LOC: M PT 13:26 | PROVIDERS: ATTEND Orthopaedic Surgery | DX: M25.511 Pain in right shoulder (principal) ==